=== PATIENT | female | born 1960 | race Caucasian/White ===

== ENCOUNTER 2018-03-01 10:04 | Observation (INO) | payer MEDICARE ==
[~2018-03-01] VITALS: Ht 160 cm; Wt 156.3 kg
[~2018-03-01 10:04] MED LIST: ABILIFY10 MG PO; AMBIEN5 MG PO; CLONAZEPAM0.5 MG PO; LEVOTHYROXINE75 MCG PO; METOPROLOL TART25 MG PO; PLAVIX75 MG PO; PRILOSEC20 MG PO; PRISTIQ ER100 MG PO; PRISTIQ ER50 MG PO
[2018-03-01 12:18] LABS: BASOPHILS % 0.5 % (0.0-1.0); EOSINOPHILS # (AUTO) 0.2 (0.0-0.4); EOSINOPHILS % 2.6 % (0.0-6.0); HEMATOCRIT 24.4 % (34.2-44.1); LYMPHOCYTES # (AUTO) 2.4 (1.0-3.2); LYMPHOCYTES % 30.5 % (18.0-39.1); MEAN CORPUSCULAR HEMOGLOBIN 17.3 pg (28-32); MEAN CORPUSCULAR HGB CONC 26.2 g/dL (31-35); MEAN CORPUSCULAR VOLUME 65.8 fL (81-99); MONOCYTES # (AUTO) 0.5 (0.2-0.8); MONOCYTES % 6.3 % (4.4-11.3); NEUTROPHILS # (AUTO) 4.6 (2.1-6.9); NEUTROPHILS % 59.5 % (38.7-80.0); PLATELET COUNT 527 x10e3/uL (140-360); RED BLOOD COUNT 3.71 x10e6/uL (3.6-5.1); RED CELL DISTRIBUTION WIDTH 19.4 % (11.7-14.4)
[2018-03-01 12:22] LABS: HEMOGLOBIN 6.4 g/dL (12.0-16.0)
[2018-03-01] MEDS ORDERED: SODIUM CHLORIDE 0.9% 250ML 250 ML IV ONE ×2 (12:30→13:15)
[2018-03-01 12:32] LABS: ALANINE AMINOTRANSFERASE 7 IU/L (0-55); ALBUMIN 3.7 g/dL (3.5-5.0); ALBUMIN/GLOBULIN RATIO 0.9 (0.8-2.0); ALKALINE PHOSPHATASE 114 IU/L (40-150); ANION GAP 12.7 mmol/L (8-16); BLOOD UREA NITROGEN 8 mg/dL (7-26); BUN/CREATININE RATIO 10 (6-25); CALCIUM 9.5 mg/dL (8.4-10.2); CARBON DIOXIDE 24 mmol/L (22-29); CHLORIDE 104 mmol/L (98-107); CREATININE, SERUM 0.83 mg/dL (0.57-1.11); EST GLOMERULAR FILTRATION RATE > 60 ML/MIN (60-); GLUCOSE 92 mg/dL (74-118); POTASSIUM 3.7 mmol/L (3.5-5.1); SODIUM 137 mmol/L (136-145)
[2018-03-01 15:43] VITALS: BP 109/71
[2018-03-01 20:00] VITALS: BP 115/74
[2018-03-01] MEDS ORDERED: SODIUM CHLORIDE 0.9% 250ML 250 ML ONE (20:41)
[2018-03-01 22:11] VITALS: BP 115/74
[2018-03-01 22:12] VITALS: BP 115/74
[2018-03-02] VITALS (7 sets, daily range): BP systolic 105–122; BP diastolic 57–78
[2018-03-02 06:36] LABS: BASOPHILS % 0.6 % (0.0-1.0); EOSINOPHILS # (AUTO) 0.2 (0.0-0.4); EOSINOPHILS % 2.4 % (0.0-6.0); HEMATOCRIT 26.6 % (34.2-44.1); HEMOGLOBIN 7.6 g/dL (12.0-16.0); LYMPHOCYTES # (AUTO) 2.1 (1.0-3.2); LYMPHOCYTES % 30.2 % (18.0-39.1); MEAN CORPUSCULAR HGB CONC 28.6 g/dL (31-35); MEAN CORPUSCULAR VOLUME 66.7 fL (81-99); MONOCYTES # (AUTO) 0.5 (0.2-0.8); MONOCYTES % 6.5 % (4.4-11.3); NEUTROPHILS # (AUTO) 4.2 (2.1-6.9); PLATELET COUNT 491 x10e3/uL (140-360); RED BLOOD COUNT 3.99 x10e6/uL (3.6-5.1); RED CELL DISTRIBUTION WIDTH 21.3 % (11.7-14.4)
[2018-03-02 08:00] LABS: ANISOCYTOSIS SLIGHT; RBC MORPHOLOGY COMMENT NORMAL
[2018-03-02 08:01] LABS: HYPOCHROMASIA MODERATE; PLATELET ESTIMATE SLIGHTLY INCREASED; PLATELET MORPHOLOGY COMMENT NORMAL
[2018-03-02] MEDS ORDERED: SODIUM CHLORIDE 0.9% 250ML 250 ML IV ONE (15:00)
[2018-03-02 20:15] LABS: FERRITIN 2.84 ng/mL (4.63-204.00)
[2018-03-02 20:33] LABS: FOLATE 5.8 ng/mL (7.0-15.4)
[2018-03-02] MEDS ORDERED: SODIUM CHLORIDE 0.9% 250ML 250 ML ONE (21:46)
[2018-03-02] MEDS ORDERED: IRON DEXTRAN INJ 500 MG in SODIUM CHLORIDE 0.9% 500ML 500 ML IV ONE (22:30)
[2018-03-02] MEDS ORDERED: IRON DEXTRAN INJ 25 MG in SODIUM CHLORIDE 0.9% 100 ML 100 ML IV ONE (22:30)
[2018-03-02] MEDS ORDERED: ACETAMINOPHEN 325 MG TAB PO ONE (23:15)
[2018-03-02] MEDS ORDERED: DIPHENHYDRAMINE HCL 25 MG CAP PO ONE (23:15)
[2018-03-02] MEDS ORDERED: HYDROCORTISONE SOD SUCCINATE 100 MG VIAL IV ONE (23:15)
[2018-03-03] VITALS: BP 135/88
[2018-03-03 07:56] VITALS: BP 117/69
[2018-03-03 07:57] LABS: HEMATOCRIT 28.6 % (34.2-44.1); HEMOGLOBIN 8.3 g/dL (12.0-16.0)
[2018-03-03] MEDS ORDERED: IRON SUCROSE 100 MG in SODIUM CHLORIDE 0.9% 100 ML 100 ML IV SCH (08:30)
[2018-03-03] MEDS ORDERED: IRON SUCROSE 300 MG in SODIUM CHLORIDE 0.9% 100 ML 100 ML IV SCH (08:30)
[2018-03-03] MEDS ORDERED: FOLIC ACID 1 MG TAB PO SCH (09:00)
[2018-03-03] MEDS ORDERED: CYANOCOBALAMIN 1,000 MCG TAB PO SCH (09:00)
[2018-03-03 10:22] VITALS: BP 117/69
== END 2018-03-03 10:35 | disposition home or self-care (01) ==
LOC: ER 10:04 → ERHOLD 13:11 → IMCU 14:28
PROVIDERS: ADMIT Internal Medicine; ATTEND Internal Medicine
DX: D50.9 Iron deficiency anemia, unspecified (principal); K44.9 Diaphragmatic hernia without obstruction or gangrene; D47.3 Essential (hemorrhagic) thrombocythemia; E53.8 Deficiency of other specified B group vitamins; F32.9 Major depressive disorder, single episode, unspecified; G47.33 Obstructive sleep apnea (adult) (pediatric)
CPT/HCPCS: 36430; P9016; 36415; 80053; 82607; 82728; 82746; 83540; 84466; 84484; 85014; 85018; 85025; 86850; 86870; 86880; 86900; 86905; 86920; 86922; 99001; 99284; G0378; J1750; J1756; J7040; J7050

== ENCOUNTER 2019-09-28 08:50 | Inpatient (IN) | payer MEDICARE ==
[2019-09-26 09:41] LABS: BASOPHILS % 0.5 % (0.0-1.0); EOSINOPHILS # (AUTO) 0.2 (0.0-0.4); EOSINOPHILS % 1.9 % (0.0-6.0); HEMATOCRIT 28.7 % (34.2-44.1); HEMOGLOBIN 8.2 g/dL (12.0-16.0); LYMPHOCYTES # (AUTO) 1.6 (1.0-3.2); MEAN CORPUSCULAR HEMOGLOBIN 20.5 pg (28-32); MEAN CORPUSCULAR HGB CONC 28.6 g/dL (31-35); MEAN CORPUSCULAR VOLUME 71.8 fL (81-99); MONOCYTES # (AUTO) 0.6 (0.2-0.8); MONOCYTES % 6.5 % (4.4-11.3); NEUTROPHILS # (AUTO) 6.1 (2.1-6.9); NEUTROPHILS % 71.7 % (38.7-80.0); PLATELET COUNT 429 x10e3/uL (140-360); RED CELL DISTRIBUTION WIDTH 17.1 % (11.7-14.4)
[2019-09-26 09:58] LABS: ANION GAP 12.6 mmol/L (8-16); BLOOD UREA NITROGEN 10 mg/dL (7-26); BUN/CREATININE RATIO 12 (6-25); CARBON DIOXIDE 25 mmol/L (22-29); CHLORIDE 105 mmol/L (98-107); CREATININE, SERUM 0.83 mg/dL (0.57-1.11); EST GLOMERULAR FILTRATION RATE > 60 ML/MIN (60-); GLUCOSE 90 mg/dL (74-118); POTASSIUM 3.6 mmol/L (3.5-5.1); SODIUM 139 mmol/L (136-145)
[2019-09-28] VITALS (10 sets, daily range): BP systolic 110–150; BP diastolic 74–114
[~2019-09-28] VITALS: Ht 160 cm; Wt 163.9 kg
[~2019-09-28 08:50] MED LIST changes: +ABILIFY5 MG PO; +LEG CRAMPS PO; +PROAIR HFA INH8.5 GM INH; +ROBITUSSIN PO; +SINEMET PO; +TRAZODONE HCL50 MG PO; +TRINTELLIX10 MG PO
[2019-09-28] MEDS ORDERED: CEFAZOLIN SOD 1 GM/NS 50ML 150 ML IV ONE (10:03)
[2019-09-28] MEDS ORDERED: BUPIVACAINE HCL 0.5% INJ 30 ML VIAL INJ ONE (10:08)
[2019-09-28] MEDS ORDERED: LIDOCAINE HCL (LTA) 4 ML SOLN ONE (10:58)
[2019-09-28] MEDS ORDERED: METRONIDAZOLE 500MG/NS 100ML 100 ML IV ONE (12:03)
[2019-09-28] MEDS ORDERED: SUGAMMADEX SODIUM 200 MG/2 ML VIAL IV ONE (12:45)
[2019-09-28] MEDS ORDERED: DIPHENHYDRAMINE HCL INJ 50 MG/ML VIAL IM PRN (12:45)
[2019-09-28] MEDS ORDERED: NALOXONE HCL INJ 0.4 MG/ML AMP IV PRN (12:45)
[2019-09-28] MEDS: SODIUM CHLORIDE 0.9% 250ML IRRIG IR SCH ×4 (12:45→21:38)
[2019-09-28] MEDS ORDERED: ACETAMINOPHEN 1000 MG/100 ML IV PRN (12:45)
[2019-09-28] MEDS ORDERED: KETOROLAC TROMETHAMINE 30 MG/ML VIAL IV PRN (12:45)
[2019-09-28] MEDS ORDERED: ALBUTEROL SULF 0.083% NEB SOLN 3 ML NEB ONE (13:17)
[2019-09-28] MEDS: MORPHINE SULFATE 1 MG/ML 30ML PCA IV PRN ×2 (13:41→23:11)
[2019-09-28] MEDS ORDERED: CEFAZOLIN SOD 1 GM VIAL IV SCH (14:00)
[2019-09-28] MEDS: DEXTROSE 5%/LACTATED RINGERS 1,000 ML IV SCH ×2 (17:45→20:21)
[2019-09-28] MEDS: CEFAZOLIN SOD 2 GM/D5W 50ML 50 ML IV SCH ×2 (17:46→21:34)
[2019-09-28] MEDS ORDERED: DEXAMETHASONE SOD PHOS INJ 4 MG/ML VIAL ONE (17:49)
[2019-09-28] MEDS ORDERED: ACETAMINOPHEN 1000 MG/100 ML IV ONE (17:49)
[2019-09-28] MEDS ORDERED: SEVOFLURANE INHAL SOLN 250 ML PEN BTL ONE (17:49)
[2019-09-28] MEDS ORDERED: ROCURONIUM BROMIDE 10 MG/ML 5ML VIAL ONE (17:49)
[2019-09-28] MEDS ORDERED: LIDOCAINE HCL 2% LOCAL INJ 5 ML SDV VIAL INJ ONE (17:49)
[2019-09-28] MEDS ORDERED: LIDOCAINE HCL 2% JELLY 5 ML TUBE ONE (17:49)
[2019-09-28] MEDS ORDERED: ONDANSETRON HCL INJ 2MG/ML 2ML 2 MG/ML VIAL ONE (17:49)
[2019-09-28] MEDS ORDERED: PROPOFOL IV EMULSION 10 MG/ML 20 ML VIAL ONE (17:49)
[2019-09-28] MEDS ORDERED: MORPHINE SULFATE INJ 10 MG/ML ONE (18:15)
[2019-09-28] MEDS ORDERED: FENTANYL CITRATE/PF 100MCG/2 ML INJ ONE (18:15)
[2019-09-28] MEDS ORDERED: MIDAZOLAM HCL 2 MG/2 ML VIAL ONE (18:15)
--- NOTE | 2019-09-28 19:38 | Operative Report ---
DATE OF PROCEDURE: 09/28/2019 SURGEON: Floyd Francis MD PREOPERATIVE DIAGNOSES: 1. Hiatal hernia. 2. Shortness of breath. POSTOPERATIVE DIAGNOSES: 1. Hiatal hernia. 2. Shortness of breath. PROCEDURES: 1. Diagnostic laparoscopy. 2. Open repair of hiatal hernia with fundoplication. PLANT PROTECTION SUPERVISOR: None. ANESTHESIA: General endotracheal. INDICATIONS AND FINDINGS: The patient is a 59-year-old female with morbid obesity, who has had shortness of breath. Evaluation revealed a large hiatal hernia, which was thought that this was compressing the lung causing her shortness of breath. At surgery, the patient had a moderate-sized hiatal hernia with about one-third of her stomach herniated above the diaphragm with some omentum and fat with no other significant abnormalities, but the patient had adequate pneumoperitoneum and exposure could not be obtained laparoscopically, requiring open surgery. DESCRIPTION OF PROCEDURE: After adequate general endotracheal anesthesia, the patient in supine position, the abdomen was prepped and draped in sterile fashion with ChloraPrep solution. Approximately 5 cm above the umbilicus to the left midline skin and subcutaneous tissue was infiltrated with 0.5% Marcaine. Incision was made, abdominal wall elevated and Veress needle was introduced, pneumoperitoneum was then created. A 10 mm trocar and cannula were then passed through this wound. Laparoscopic camera was introduced. Initial laparoscopy revealed no free fluid. The pneumoperitoneum was limited because of the patient's size. A 10 mm trocar and cannulas were placed in the right of the midline to the falciform ligament. The liver had changes of fatty infiltration. Left lobe of the liver is elevated, however, the size of space to work in was very small. A 5 mm trocar and cannula were placed in subxiphoid to the left of the midline. A 10 mm trocar and cannula were placed in the anterior axillary line below the costal margin. However, adequate exposure could not be obtained despite the additional trocars, therefore space to work in was very small, so the laparoscopic surgery could not be safely done. An upper midline incision was then made and the peritoneal cavity was entered. The patient was found to have hiatal hernia with approximately one-third of the stomach herniated above the diaphragm. The stomach easily reduced in the peritoneal cavity. The left lower liver was mobilized by dividing peritoneal attachments, retracted away from the esophageal hiatus. The lesser omentum was divided with LigaSure device, exposing the esophageal hiatus. Peritoneal attachments to the right side of the esophageal hiatus were divided with LigaSure device and the peritoneal attachments anterior-posterior also divided with LigaSure device. The fundus of the stomach was mobilized by dividing short gastric vessels and peritoneal attachments. Esophagus encircled with a [place] drain. The hiatal hernia was only moderate, this was closed posterior to the esophagus with interrupted sutures of #0 Prolene, open enough so that finger easily passed through the hiatus, but nothing larger. Examination of the fundus and stomach revealed a small perforation in the stomach and this was closed with a TA60 stapler. Because the patient had minimal reflux symptoms, the primary symptoms of shortness of breath thought to be due to compression by the stomach in the chest to do an only a partial fundoplication. The stomach was brought anteriorly and sutures taken from the stomach to the esophagus with interrupted sutures of 2-0 silk to complete approximately 180-degree fundoplication and restore the normal angle of His. Hemostasis was seen to be adequate. The wound was irrigated with saline, inspected for hemostasis, which was seen to be adequate. The midline fascia was then closed and closed with running suture of #1 PDS. Subcutaneous tissue was irrigated with saline. Skin was closed with matt. Sterile dressing was applied. The patient tolerated the procedure well. Estimated blood loss was 100 mL. There were no complications. All counts were correct, and the patient was taken to the recovery room in satisfactory condition MD RANDY LewisG/MODL /[id number] cc: Jaleel Mahmood MD
--- NOTE | 2019-09-28 19:39 | NUR ---
patient admitted to icu from pacu. pt alert and oriented. resting well. calm. has ivf's and pipe turner with effective pain relief. pt educated with pipe turner button. educated for incentive spirometer at bedside. 10 breaths an hour wa. pt verbalized understanding. pt demonstrated correct use of I.S. oriented pt to room and discussed plan of care.
--- NOTE | 2019-09-28 19:41 | NUR ---
nsg report given to night BRI Vital
[2019-09-29] VITALS (20 sets, daily range): BP systolic 101–137; BP diastolic 46–109
[2019-09-29] MEDS: SODIUM CHLORIDE 0.9% 250ML IRRIG IR SCH ×2 (02:59→04:18)
[2019-09-29] MEDS: DEXTROSE 5%/LACTATED RINGERS 1,000 ML IV SCH ×2 (02:59→09:14)
[2019-09-29] MEDS: CEFAZOLIN SOD 2 GM/D5W 50ML 50 ML IV SCH (04:18)
[2019-09-29 05:07] LABS: HEMATOCRIT 28.2 % (34.2-44.1); HEMOGLOBIN 7.8 g/dL (12.0-16.0); RED BLOOD COUNT 3.86 x10e6/uL (3.6-5.1)
[2019-09-29 05:08] LABS: BASOPHILS % 0.1 % (0.0-1.0); LYMPHOCYTES # (AUTO) 1.4 (1.0-3.2); LYMPHOCYTES % 10.3 % (18.0-39.1); MEAN CORPUSCULAR HEMOGLOBIN 20.2 pg (28-32); MEAN CORPUSCULAR HGB CONC 27.7 g/dL (31-35); MEAN CORPUSCULAR VOLUME 73.1 fL (81-99); MONOCYTES # (AUTO) 1.3 (0.2-0.8); MONOCYTES % 9.7 % (4.4-11.3); NEUTROPHILS # (AUTO) 10.4 (2.1-6.9); NEUTROPHILS % 79.3 % (38.7-80.0); PLATELET COUNT 437 x10e3/uL (140-360); RED CELL DISTRIBUTION WIDTH 17.3 % (11.7-14.4)
[2019-09-29 05:33] LABS: ALANINE AMINOTRANSFERASE 43 IU/L (0-55); ALBUMIN 3.2 g/dL (3.5-5.0); ALBUMIN/GLOBULIN RATIO 0.9 (0.8-2.0); ALKALINE PHOSPHATASE 91 IU/L (40-150); ANION GAP 13.4 mmol/L (8-16); BLOOD UREA NITROGEN 9 mg/dL (7-26); BUN/CREATININE RATIO 11 (6-25); CALCIUM 9.1 mg/dL (8.4-10.2); CARBON DIOXIDE 25 mmol/L (22-29); CHLORIDE 104 mmol/L (98-107); CREATININE, SERUM 0.83 mg/dL (0.57-1.11); EST GLOMERULAR FILTRATION RATE > 60 ML/MIN (60-); GLUCOSE 134 mg/dL (74-118); POTASSIUM 4.4 mmol/L (3.5-5.1); SODIUM 138 mmol/L (136-145)
--- NOTE | 2019-09-29 06:45 | Consultation ---
DATE OF CONSULTATION: 09/29/2019 REASON FOR CONSULTATION: Postop medical management. HISTORY OF PRESENT ILLNESS: The patient is a 59-year-old lady, status post hiatal hernia repair, who has actually postoperatively did very well with minimal abdominal pain. She denies any fever, chills, nausea, vomiting, headache, shortness of breath, chest pain on review of systems currently. PAST MEDICAL HISTORY: Significant for chronic anemia, reflux disease, hiatal hernia, morbid obesity. MEDICATIONS: See MAR. ALLERGIES: SEE MAR. SOCIAL HISTORY: Lives at home. Nonsmoker, nondrinker. FAMILY HISTORY: Hypertension, diabetes. PHYSICAL EXAMINATION: VITAL SIGNS: Temperature 98.6, pulse 74, blood pressure 136/74, sats 98%. GENERAL: No apparent distress, lying in bed. NECK: Supple. No lymphadenopathy. CARDIOVASCULAR: Regular rate and rhythm. LUNGS: Clear to auscultation bilaterally. ABDOMEN: Soft. Hypoactive bowel sounds, but no peritoneal signs. EXTREMITIES: No clubbing or cyanosis. NEUROLOGIC: Nonfocal. ASSESSMENT AND PLAN: 1. Reflux disease. Continue with current care. 2. Status post hiatal hernia repair. Continue with postoperative care. 3. Anemia. This is chronic for the patient. She is near her baseline, so we will continue to monitor. 4. Leukocytosis. Continue to monitor. 5. Abdominal pain. Continue with pain control. 6. Morbid obesity. Continue with diet. 7. Hypertension. We will continue to monitor. Please see also chart for full details. MD BENNY Celeste/MICHAEL /[id number]
[2019-09-29 09:09] LABS: EOSINOPHILS % (MANUAL) 1 % (0-7); LYMPHOCYTES % (MANUAL) 16 % (19-48); MONOCYTES % (MANUAL) 7 % (3.4-9.0); NEUTROPHILS % (MANUAL) 76 % (40-74); PLATELET ESTIMATE ADEQUATE; PLATELET MORPHOLOGY COMMENT NORMAL; RBC MORPHOLOGY COMMENT NORMAL
--- NOTE | 2019-09-29 09:27 | NUR ---
Called Dr Guevara's office to notify of new critical care consult.
[2019-09-29] MEDS: DEXTROSE 5%/0.45% SOD CHL 1,000 ML IV SCH ×2 (12:43→22:54)
--- NOTE | 2019-09-29 18:26 | Consultation ---
DATE OF CONSULTATION: 09/29/2019 Critical Care Consultation REASON FOR CONSULTATION: ICU management. CHIEF COMPLAINT: The patient is postoperative, underwent open repair of hiatal hernia and fundoplication by Dr. Francis. HISTORY OF PRESENT ILLNESS: Ms. Blackburn is a 59-year-old female. She told me that she had severe hiatal hernia and she is following up with metropolitan editor, Dr. Rizvi at [facility]. The hiatal hernia was compressing the lung and causing shortness of breath, so she decided to get the surgery done. Postoperatively, the patient is in ICU. She is denying any complaints of chest pain. She is having abdominal discomfort. She is still n.p.o. She uses CPAP at night for obstructive sleep apnea. She denies any history of smoking. She is a lifelong nonsmoker. She is morbidly obese. REVIEW OF SYSTEMS: GENERAL: Denies any fever or chills. HEAD: Denies any head trauma. ENT: Denies any earache. CVS: Denies any chest pain. RESPIRATORY: Denies any shortness of breath. The rest of the review of systems are negative except as in HPI. PAST MEDICAL HISTORY: Hypertension, obesity, obstructive sleep apnea, and gastroesophageal reflux disease. FAMILY AND SOCIAL HISTORY: She does not smoke. Does not drink. PHYSICAL EXAMINATION: VITAL SIGNS: Temperature 97.9, pulse of 83, blood pressure 134/76, respiratory rate of 18, and O2 saturation 97%. HEENT: Head, atraumatic and normocephalic. NECK: Supple. CHEST: Clear to auscultation bilaterally. No wheezing. HEART: S1 and S2 audible. ABDOMEN: Tender. EXTREMITIES: No pedal edema. LABORATORY DATA: Reviewed. Hemoglobin 7.8, white count of 13.12, and platelets 437. Chemistries within normal limits. ASSESSMENT: Elzbieta Blackburn is a 59-year-old female, postoperative after hiatal hernia surgery, fundoplication. She has history of obstructive sleep apnea. PLAN: 1. I will start the patient on CPAP at 10, which is a home setting. 2. Physical Therapy evaluation and treatment. MD MY Rosas/MICHAEL /[id number]
--- NOTE | 2019-09-29 19:25 | NUR ---
reports received, patient in bed, awake alert oriented. no distress noted, stated pain level is 1 at this moment. will continue to monitor.
--- NOTE | 2019-09-29 20:54 | NUR ---
turn patient to the right side, pain level now is 1/10, vitals signs within normal level.
[2019-09-30] VITALS (11 sets, daily range): BP systolic 101–138; BP diastolic 56–100
[2019-09-30] MEDS: MORPHINE SULFATE 1 MG/ML 30ML PCA IV PRN (01:26)
[2019-09-30 05:32] LABS: HEMATOCRIT 25.4 % (34.2-44.1); HEMOGLOBIN 7.1 g/dL (12.0-16.0); MEAN CORPUSCULAR HEMOGLOBIN 20.3 pg (28-32); MEAN CORPUSCULAR VOLUME 72.8 fL (81-99); PLATELET COUNT 372 x10e3/uL (140-360); RED BLOOD COUNT 3.49 x10e6/uL (3.6-5.1); RED CELL DISTRIBUTION WIDTH 17.3 % (11.7-14.4)
--- NOTE | 2019-09-30 05:55 | NUR ---
Dr Timoteo maynard, made him aware patient output is only 400cc in this shift. the MD ordered lasix 20 mg IV time one, also Protonix 40 mg IV twiece a day for heart burn. order carried out.
[2019-09-30 05:58] LABS: ANION GAP 12.5 mmol/L (8-16); BLOOD UREA NITROGEN 6 mg/dL (7-26); BUN/CREATININE RATIO 8 (6-25); CALCIUM 8.6 mg/dL (8.4-10.2); CARBON DIOXIDE 27 mmol/L (22-29); CHLORIDE 100 mmol/L (98-107); CREATININE, SERUM 0.76 mg/dL (0.57-1.11); EST GLOMERULAR FILTRATION RATE > 60 ML/MIN (60-); GLUCOSE 102 mg/dL (74-118); POTASSIUM 3.5 mmol/L (3.5-5.1); SODIUM 136 mmol/L (136-145)
[2019-09-30] MEDS ORDERED: FUROSEMIDE INJ 10 MG/ML 2 ML VIAL IV ONE (06:00)
[2019-09-30 07:13] LABS: HYPOCHROMASIA MODERATE; RBC MORPHOLOGY COMMENT ABNORMAL
[2019-09-30] MEDS: DEXTROSE 5%/0.45% SOD CHL 1,000 ML IV SCH ×2 (08:15→20:22)
[2019-09-30] MEDS: PANTOPRAZOLE 40 MG 10ML VIAL IV SCH ×2 (09:27→17:43)
[2019-09-30] MEDS: ONDANSETRON HCL INJ 2MG/ML 2ML 2 MG/ML VIAL IV PRN (17:49)
[2019-09-30] MEDS: MORPHINE SULFATE INJ 4 MG/ML INJ 1ML IV PRN (17:49)
--- NOTE | 2019-09-30 19:00 | NUR ---
Report given to Naren Guerrero RN.
--- NOTE | 2019-09-30 19:00 | NUR ---
Report received from Karely GREGORY. Care plan reviewed, no family present. Pt reports no pain or discomfort at this time.
[2019-10-01] VITALS (8 sets, daily range): BP systolic 101–133; BP diastolic 56–99
[2019-10-01] MEDS: MORPHINE SULFATE INJ 4 MG/ML INJ 1ML IV PRN ×2 (03:06→21:00)
[2019-10-01 05:21] LABS: BASOPHILS % 0.2 % (0.0-1.0); EOSINOPHILS # (AUTO) 0.2 (0.0-0.4); EOSINOPHILS % 1.7 % (0.0-6.0); LYMPHOCYTES # (AUTO) 1.5 (1.0-3.2); LYMPHOCYTES % 13.6 % (18.0-39.1); MEAN CORPUSCULAR HEMOGLOBIN 20.3 pg (28-32); MEAN CORPUSCULAR HGB CONC 28.3 g/dL (31-35); MEAN CORPUSCULAR VOLUME 71.6 fL (81-99); MONOCYTES # (AUTO) 0.9 (0.2-0.8); MONOCYTES % 8.1 % (4.4-11.3); NEUTROPHILS # (AUTO) 8.5 (2.1-6.9); NEUTROPHILS % 75.4 % (38.7-80.0); PLATELET COUNT 326 x10e3/uL (140-360); RED BLOOD COUNT 3.35 x10e6/uL (3.6-5.1); RED CELL DISTRIBUTION WIDTH 17.1 % (11.7-14.4)
[2019-10-01 05:29] LABS: HEMOGLOBIN 6.8 g/dL (12.0-16.0)
[2019-10-01] MEDS ORDERED: SODIUM CHLORIDE 0.9% 250ML 250 ML IV ONE (05:45)
[2019-10-01 05:46] LABS: ANION GAP 13.9 mmol/L (8-16); BLOOD UREA NITROGEN 9 mg/dL (7-26); BUN/CREATININE RATIO 11 (6-25); CALCIUM 8.6 mg/dL (8.4-10.2); CARBON DIOXIDE 27 mmol/L (22-29); CHLORIDE 97 mmol/L (98-107); CREATININE, SERUM 0.79 mg/dL (0.57-1.11); EST GLOMERULAR FILTRATION RATE > 60 ML/MIN (60-); GLUCOSE 102 mg/dL (74-118); SODIUM 135 mmol/L (136-145)
[2019-10-01 05:53] LABS: POTASSIUM 2.9 mmol/L (3.5-5.1)
--- NOTE | 2019-10-01 06:22 | NUR ---
called and made dr Mahmood aware, patient's Hgb is 6.8 and potassium is 2.9 this morning, orders received to give PRBC 1 unit, and Potassium 40 meq PO time one. Consent for blood transfusion obtained.
[2019-10-01] MEDS ORDERED: POTASSIUM CHLORIDE 20 MEQ TAB CR PO ONE (07:00)
[2019-10-01] MEDS: PANTOPRAZOLE 40 MG 10ML VIAL IV SCH ×2 (08:45→16:30)
[2019-10-01] MEDS ORDERED: SODIUM CHLORIDE 0.9% 250ML 250 ML ONE (08:48)
[2019-10-01] MEDS ORDERED: FUROSEMIDE INJ 10 MG/ML 2 ML VIAL IV NR ×2 (09:00→11:30)
[2019-10-01] MEDS: DEXTROSE 5%/0.45% SOD CHL 1,000 ML IV SCH (11:15)
--- NOTE | 2019-10-01 12:07 | Progress Note ---
DATE: 10/01/2019 SUBJECTIVE: The patient did well overnight. No new complaints. Abdominal pain is doing better. OBJECTIVE: VITAL SIGNS: Temperature 98.0, pulse 78, blood pressure 113/69, sats 99%. GENERAL: No apparent distress, lying in bed. NECK: Supple. CARDIOVASCULAR: Regular rate and rhythm. LUNGS: Decreased breath sounds bilaterally. ABDOMEN: Good bowel sounds, soft, nontender. EXTREMITIES: No clubbing or cyanosis. NEUROLOGIC: Nonfocal. ASSESSMENT AND PLAN: 1. Status post hiatal hernia repair. Continue with postoperative care. 2. Abdominal pain, continues to improve. So, continue with p.r.n. pain medication. 3. Hemoglobin. We will transfuse 1 unit of packed red cells for her. 4. Leukocytosis. Continue to monitor. 5. Hypokalemia. We will replace with some potassium. 6. Reflux disease. Continue with her proton pump inhibitor. Please see hospital chart for full details. MD BENNY Celeste/MICHAEL /[id number]
[2019-10-01 12:33] LABS: BAND NEUTROPHILS % (MANUAL) 3 %; EOSINOPHILS % (MANUAL) 1 % (0-7); LYMPHOCYTES % (MANUAL) 13 % (19-48); NEUTROPHILS % (MANUAL) 76 % (40-74)
[2019-10-01 12:34] LABS: MONOCYTES % (MANUAL) 7 % (3.4-9.0); PLATELET ESTIMATE ADEQUATE; PLATELET MORPHOLOGY COMMENT NORMAL; RBC MORPHOLOGY COMMENT NORMAL
[2019-10-01 14:08] LABS: % IRON SATURATION 4 % (15-50); IRON 14 ug/dL (50-170); TOTAL IRON BINDING CAPACITY 333 ug/dL (261-478); TRANSFERRIN 238 mg/dL (180-382)
[2019-10-01] MEDS: IRON SUCROSE 100 MG in SODIUM CHLORIDE 0.9% 100 ML 100 ML IV SCH (15:54)
--- NOTE | 2019-10-01 16:11 | NUR ---
Phone call received from blood bank. The PRBC is ready for picking crew supervisor and they will cancel what blood bank considers as a duplicate order to transfuse the one unit that is ordered to give today.
--- NOTE | 2019-10-01 18:00 | NUR ---
Pt received from ICU at this time. 0 s/s of acute distress noted. Denies any pain at this time. Pt is on O2 2L/min and denies any SOB. Pt is aox4 and able to vebalize needs.
--- NOTE | 2019-10-01 18:50 | NUR ---
Bedside shift report received from morning nurse. Pt alert to name, lying in bed HOB 45 degrees. Blood running 20g IV right FA, no adverse effects noted. Denies pain at this time. Bed locked. Call light within reach.
[2019-10-01] MEDS: BUDESONIDE/FORMOTEROL FUMARATE 80/4.5MCG 6.9 GM INH AEROSOL IH SCH (19:00)
[2019-10-02] VITALS (8 sets, daily range): BP systolic 101–154; BP diastolic 56–79
[2019-10-02 05:56] LABS: BASOPHILS % 0.3 % (0.0-1.0); EOSINOPHILS # (AUTO) 0.3 (0.0-0.4); EOSINOPHILS % 3.4 % (0.0-6.0); HEMATOCRIT 26.4 % (34.2-44.1); HEMOGLOBIN 7.6 g/dL (12.0-16.0); LYMPHOCYTES # (AUTO) 1.4 (1.0-3.2); LYMPHOCYTES % 16.2 % (18.0-39.1); MEAN CORPUSCULAR HEMOGLOBIN 20.8 pg (28-32); MEAN CORPUSCULAR HGB CONC 28.8 g/dL (31-35); MEAN CORPUSCULAR VOLUME 72.1 fL (81-99); MONOCYTES # (AUTO) 0.8 (0.2-0.8); MONOCYTES % 9.1 % (4.4-11.3); NEUTROPHILS # (AUTO) 6.2 (2.1-6.9); NEUTROPHILS % 69.8 % (38.7-80.0); PLATELET COUNT 357 x10e3/uL (140-360); RED BLOOD COUNT 3.66 x10e6/uL (3.6-5.1); RED CELL DISTRIBUTION WIDTH 17.5 % (11.7-14.4)
[2019-10-02 06:24] LABS: ALANINE AMINOTRANSFERASE 18 IU/L (0-55); ALBUMIN 2.6 g/dL (3.5-5.0); ALBUMIN/GLOBULIN RATIO 0.7 (0.8-2.0); ALKALINE PHOSPHATASE 122 IU/L (40-150); ANION GAP 13.1 mmol/L (8-16); BLOOD UREA NITROGEN 8 mg/dL (7-26); BUN/CREATININE RATIO 11 (6-25); CALCIUM 8.8 mg/dL (8.4-10.2); CARBON DIOXIDE 28 mmol/L (22-29); CHLORIDE 100 mmol/L (98-107); CREATININE, SERUM 0.72 mg/dL (0.57-1.11); EST GLOMERULAR FILTRATION RATE > 60 ML/MIN (60-); GLUCOSE 100 mg/dL (74-118); POTASSIUM 3.1 mmol/L (3.5-5.1); SODIUM 138 mmol/L (136-145)
--- NOTE | 2019-10-02 06:58 | NUR ---
Received bedside shift report from off going nurse. Patient is resting in bed, no s/s of acute distress noted. Call light within reach. Bed in the lowest position.
[2019-10-02] MEDS: BUDESONIDE/FORMOTEROL FUMARATE 80/4.5MCG 6.9 GM INH AEROSOL IH SCH ×3 (07:00→19:00)
[2019-10-02] MEDS: PANTOPRAZOLE 40 MG 10ML VIAL IV SCH ×2 (08:50→16:30)
[2019-10-02] MEDS: DEXTROSE 5%/0.45% SOD CHL 1,000 ML IV SCH (10:20)
--- NOTE | 2019-10-02 10:37 | NUR ---
Ko care completed at this time.
--- NOTE | 2019-10-02 11:30 | NUR ---
Peformed the bedside pulmonary function test ordered by Dr. Guevara. Results are in the doctors bin for dictation.
[2019-10-02] MEDS: IRON SUCROSE 100 MG in SODIUM CHLORIDE 0.9% 100 ML 100 ML IV SCH (14:35)
[2019-10-02] MEDS ORDERED: POTASSIUM CHLORIDE 20 MEQ TAB CR PO STA (15:16)
--- NOTE | 2019-10-02 19:27 | NUR ---
Bedside shift report given to oncoming nurse. Patient is resting in recliner. No acute distress noted. Assisted patient back to bed. Call light within reach. Bed in the lowest position. Bed alarm on.
[2019-10-02] MEDS: ONDANSETRON HCL INJ 2MG/ML 2ML 2 MG/ML VIAL IV PRN (20:13)
[2019-10-02] MEDS: MORPHINE SULFATE INJ 4 MG/ML INJ 1ML IV PRN (20:13)
--- NOTE | 2019-10-02 23:32 | NUR ---
Received bedside report from day nurse. Assisted patient from recliner back into bed. No s/s of distress or c/o pain at this time. Bed locked and in low position, alarm on, call light placed within reach. All safety measures in place. Instructed to call for assistance if needed. Will continue to monitor.
[2019-10-03] VITALS (8 sets, daily range): BP systolic 117–168; BP diastolic 63–79
--- NOTE | 2019-10-03 07:04 | NUR ---
Bedside report given to day nurse. Patient resting in bed, no s/s of distress at this time. All safety measures in place.
[2019-10-03] MEDS: DEXTROSE 5%/0.45% SOD CHL 1,000 ML IV SCH (07:12)
[2019-10-03 07:22] LABS: BASOPHILS % 0.4 % (0.0-1.0); EOSINOPHILS # (AUTO) 0.5 (0.0-0.4); EOSINOPHILS % 5.6 % (0.0-6.0); HEMATOCRIT 26.1 % (34.2-44.1); HEMOGLOBIN 7.5 g/dL (12.0-16.0); LYMPHOCYTES # (AUTO) 1.5 (1.0-3.2); LYMPHOCYTES % 17.9 % (18.0-39.1); MEAN CORPUSCULAR HEMOGLOBIN 20.9 pg (28-32); MEAN CORPUSCULAR HGB CONC 28.7 g/dL (31-35); MEAN CORPUSCULAR VOLUME 72.9 fL (81-99); MONOCYTES # (AUTO) 0.7 (0.2-0.8); MONOCYTES % 8.4 % (4.4-11.3); NEUTROPHILS # (AUTO) 5.5 (2.1-6.9); NEUTROPHILS % 64.7 % (38.7-80.0); PLATELET COUNT 371 x10e3/uL (140-360); RED BLOOD COUNT 3.58 x10e6/uL (3.6-5.1); RED CELL DISTRIBUTION WIDTH 18.3 % (11.7-14.4)
[2019-10-03] MEDS: BUDESONIDE/FORMOTEROL FUMARATE 80/4.5MCG 6.9 GM INH AEROSOL IH SCH ×2 (07:45→21:00)
--- NOTE | 2019-10-03 07:50 | NUR ---
Pt received in bed this morning with eyes open. AOx4 and able to verbalize needs. Denies any pain at this time. Breaths are even and unlabored on 2L/NC.
[2019-10-03 08:18] LABS: ALANINE AMINOTRANSFERASE 17 IU/L (0-55); ALBUMIN 2.6 g/dL (3.5-5.0); ALBUMIN/GLOBULIN RATIO 0.7 (0.8-2.0); ALKALINE PHOSPHATASE 125 IU/L (40-150); ANION GAP 12.3 mmol/L (8-16); BLOOD UREA NITROGEN 5 mg/dL (7-26); BUN/CREATININE RATIO 7 (6-25); CALCIUM 8.9 mg/dL (8.4-10.2); CARBON DIOXIDE 28 mmol/L (22-29); CHLORIDE 101 mmol/L (98-107); CREATININE, SERUM 0.68 mg/dL (0.57-1.11); EST GLOMERULAR FILTRATION RATE > 60 ML/MIN (60-); GLUCOSE 94 mg/dL (74-118); POTASSIUM 3.3 mmol/L (3.5-5.1); SODIUM 138 mmol/L (136-145)
[2019-10-03] MEDS: PANTOPRAZOLE 40 MG 10ML VIAL IV SCH ×2 (08:53→16:50)
[2019-10-03] MEDS ORDERED: POTASSIUM CHLORIDE 20 MEQ TAB CR PO ONE (11:10)
[2019-10-03 11:15] LABS: HYPOCHROMASIA MODERATE; POIKILOCYTOSIS SLIGHT
[2019-10-03 11:16] LABS: PLATELET ESTIMATE ADEQUATE
[2019-10-03 11:18] LABS: ANISOCYTOSIS SLIGHT; MICROCYTOSIS SLIGHT; PLATELET MORPHOLOGY COMMENT NORMAL
--- NOTE | 2019-10-03 11:47 | NUR ---
Ko catheter was removed at this time per physician.
[2019-10-03] MEDS: HYDROCODONE/APAP 5MG-325MG TAB PO PRN ×2 (13:38→19:55)
[2019-10-03] MEDS: IRON SUCROSE 100 MG in SODIUM CHLORIDE 0.9% 100 ML 100 ML IV SCH (15:12)
--- NOTE | 2019-10-03 16:53 | NUR ---
Pt was able to ambulate to bathroom and urinate and have a bowel movement.
--- NOTE | 2019-10-03 19:16 | NUR ---
Received bedside report from day nurse. Patient sitting in chair, no s/s of distress at this time. All safety measures in place. Will continue to monitor.
--- NOTE | 2019-10-03 19:49 | NUR ---
Removed IV to left forearm per patient request. Patient still has IV access to right forearm.
[2019-10-04 00:57] VITALS: BP 116/84
[2019-10-04] MEDS: HYDROCODONE/APAP 5MG-325MG TAB PO PRN ×2 (01:29→11:04)
--- NOTE | 2019-10-04 02:31 | Pulmonary Function Test ---
DATE OF STUDY: 10/02/2019 REFERRING PHYSICIAN: NAME OF STUDY: Spirometry report. Patient of Dr. Francis. FINDINGS: Restrictive spirometry. Forced vital capacity 1.41 L, 44% of predicted. FEV1 1.16 L, 46%. FEV1/FVC ratio 82%. FEF 25-75 of 52%. Floyd Guevara MD DS/MODL /[id number]
[2019-10-04] MEDS ORDERED: ALPRAZOLAM 0.25 MG TAB PO PRN (05:15)
[2019-10-04 05:25] VITALS: BP 103/54
--- NOTE | 2019-10-04 07:05 | NUR ---
Bedside report given to day nurse. Patient resting in bed, no s/s of distress or c/o pain at this time. All safety measures in place.
[2019-10-04 07:36] VITALS: BP 114/64
[2019-10-04 08:17] VITALS: BP 114/64
[2019-10-04] MEDS: BUDESONIDE/FORMOTEROL FUMARATE 80/4.5MCG 6.9 GM INH AEROSOL IH SCH (08:20)
[2019-10-04] MEDS: PANTOPRAZOLE 40 MG 10ML VIAL IV SCH (09:00)
[2019-10-04 11:14] VITALS: BP 121/67
--- NOTE | 2019-10-04 13:17 | NUR ---
Nutrition Screen Note RD Recommendation for Physician: - Continue Regular diet as tolerated Plan of Care: RD following, monitoring for tolerance and adequacy Nutrition reason for involvement: LOS Primary Diagnose(s): GERD, hiatal hernia PMH: anemia, reflux disease, hiatal hernia, obesity Ht: 63 in Wt: 361.44 lb BMI: 64 kg/m2 IBW: [address] Assessment: (10/04) 59 YOF admitted for GERD and hiatal hernia requiring surgical repair on 09/28. Pt seen today for LOS. Pt reports tolerating regular diet, denies any difficulties swallowing and no abdominal pain or N/V/D. Pt reports UBW 350#, no wt loss noted. Pt discussed during am rounds, possible discharge today. Chart reviewed. Labs and meds reviewed. Will monitor and continue to follow. Current Diet: Regular Malnutrition Evaluation (10/04/19) The patient does not meet criteria for a specified degree of malnutrition at this time. Will re-evaluate at follow-up as appropriate. Diet Education Needs Assessment: Diet education not indicated. Diet tolerance: tolerating po Nutrition Care Level: Low Signed: Genet Blair RD, LD, [facility]
--- NOTE | 2019-10-04 15:02 | NUR ---
IMM LETTER EXPLAINED TO PT. PT VERBALIZED UNDERSTANDING. IMM LETTER SIGNED. COPY TO PT AND COPY TO CHART.
[2019-10-04 15:31] VITALS: BP 122/69
--- NOTE | 2019-10-04 16:28 | NUR ---
Discontinuing skilled PT services since patient is Mod I in functional mobility. Thank you. Addendum: 10/04/19 at 1629 by Gordo borrero PT Amended: Links added.
--- NOTE | 2019-10-04 16:31 | NUR ---
Pt discharged at this time. Pt verbalized understanding of all discharge follow up appts and discharge instructions. Midline abdominal incision is intact with matt.
--- NOTE | 2019-10-05 06:23 | Discharge Summary ---
ADMISSION DIAGNOSES: Shortness of breath, gastroesophageal reflux disease, morbid obesity, hiatal hernia. DISCHARGE DIAGNOSES: Shortness of breath, gastroesophageal reflux disease, morbid obesity, hiatal hernia. PRINCIPAL PROCEDURE: Diagnostic laparoscopy, open repair of hiatal hernia with fundoplication. HISTORY OF PRESENT ILLNESS: The patient is a 59-year-old female with history of morbid obesity, who presents with complaints of shortness of breath. Evaluation revealed hiatal hernia. Opinion of pulmonary physicians that the patient's shortness of breath is related to herniation of the stomach into the chest, causing compression of the lung. 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 HOSPITAL COURSE: The patient was admitted to the hospital, underwent surgery on the same day on admission. She had diagnostic laparoscopy, open repair of hiatal hernia with fundoplication. Postop, the patient was initially monitored in the intensive care unit. She was seen in consultation by Dr. Jaleel Mahmood, Dr. Rena Alfredo. She remained stable. She was transferred to the regular floor. She was started on liquid diet. She tolerated without problem and gradually advanced to solid food. She continued to have some shortness of breath, however, which was managed by Pulmonary and gradually improved. She was out of bed ambulating with a walker. She was tolerating diet. She was discharged home on the 6th postop day. At the time of discharge, she was afebrile, wounds were clean, and tolerating diet. DISCHARGE MEDICATIONS: Are listed in the chart. FOLLOWUP: She will follow up with Dr. Francis in approximately 5 to 6 days after discharge to home in satisfactory condition on a regular diet. MD LEIDY Lewis/MICHAEL /[id number]
== END 2019-10-04 16:34 | disposition home or self-care (01) | DRG 326 ==
LOC: OR 08:50 → PACU V 13:24 → ICU 15:00 → MED/SURG3 10-01 18:15
PROVIDERS: ADMIT Surgery; ATTEND Surgery
PROC: 0DV40ZZ Restriction of Esophagogastric Junction, Open Approach (ICD-10-PCS; 2019-09-28)
PROC: 0BJT4ZZ Inspection of Diaphragm, Percutaneous Endoscopic Approach (ICD-10-PCS; 2019-09-28)
PROC: 0BQT0ZZ Repair Diaphragm, Open Approach (ICD-10-PCS; principal; 2019-09-28 11:00)
PROC: 30233N1 Transfusion of Nonautologous Red Blood Cells into Peripheral Vein, Percutaneous Approach (ICD-10-PCS; 2019-10-01)
DX: K44.9 Diaphragmatic hernia without obstruction or gangrene (principal); J96.00 Acute respiratory failure, unspecified whether with hypoxia or hypercapnia; Z68.44 Body mass index [BMI] 60.0-69.9, adult; Q25.45 Double aortic arch; E66.01 Morbid (severe) obesity due to excess calories; Z53.31 Laparoscopic surgical procedure converted to open procedure; K21.9 Gastro-esophageal reflux disease without esophagitis; D64.9 Anemia, unspecified; D72.829 Elevated white blood cell count, unspecified; I10 Essential (primary) hypertension; G47.33 Obstructive sleep apnea (adult) (pediatric); E87.6 Hypokalemia
CPT/HCPCS: 36415; 80048; 80053; 83540; 83735; 84466; 85007; 85025; 85027; 86850; 86900; 86920; 86922; 93005; 94060; 94660; 94664; 96360; 96361; 97139; J0690; J1100; J1756; J1885; J1940; J2001; J2250; J2270; J2405; J3010; J7050; P9016

== ENCOUNTER 2019-11-29 12:55 | Inpatient (IN) | payer MEDICARE ==
[~2019-11-29] VITALS: Ht 160 cm; Wt 154.8 kg
[2019-11-29] MEDS ORDERED: SODIUM CHLORIDE 0.9% 1000ML 1,000 ML IV STA (12:58)
[2019-11-29] MEDS ORDERED: SODIUM CHLORIDE 0.9% 1000ML 1,000 ML IV SCH (13:04)
[2019-11-29] MEDS ORDERED: MORPHINE SULFATE 2 MG/ML SYR 1ML IV PRN (13:15)
--- NOTE | 2019-11-29 13:36 | NUR ---
Noted eschar to L lateral side of Right foot. 3 sutures noted to ankle region, Large round fluid filled blister noted to R medial lopez. Scattered abrasions and bruising noted to R foot with serosanginous and purulent drainage.
[2019-11-29] MEDS ORDERED: VANCOMYCIN 1GM/NS 250 ML 250 ML IV ONE (13:45)
--- NOTE | 2019-11-29 14:02 | Diagnostic Imaging Report ---
EXAMINATION: CHEST SINGLE (PORTABLE) INDICATION: Shortness of breath COMPARISON: None FINDINGS: LINES/TUBES:None LUNGS:The lungs are well-inflated. No focal consolidation or pulmonary edema. PLEURA:No pleural effusion or pneumothorax. MEDIASTINUM:The cardiomediastinal silhouette appears normal in size and shape. BONES/SOFT TISSUES:No acute osseous injury. ABDOMEN:No free air under the diaphragm. IMPRESSION: No focal pneumonia or pulmonary edema. Signed by: Vazquez Edgar MD on 11/29/2019 1:59 PM
--- NOTE | 2019-11-29 14:04 | Diagnostic Imaging Report ---
EXAMINATION: FOOT RIGHT COMPLETE INDICATION: Foot infection COMPARISON: None FINDINGS: No acute fracture or dislocation. Alignment appears anatomic. Mild diffuse soft tissue swelling at the midfoot and forefoot. Mild scattered degenerative changes. Prominent plantar calcaneal spur. IMPRESSION: Diffuse forefoot and midfoot soft tissue swelling. No acute osseous injury. Signed by: Vazquez Edgar MD on 11/29/2019 2:00 PM
[2019-11-29 14:19] LABS: BASOPHILS % 0.3 % (0.0-1.0); EOSINOPHILS # (AUTO) 0.1 (0.0-0.4); EOSINOPHILS % 1.3 % (0.0-6.0); HEMATOCRIT 28.3 % (34.2-44.1); HEMOGLOBIN 8.5 g/dL (12.0-16.0); LYMPHOCYTES # (AUTO) 1.4 (1.0-3.2); LYMPHOCYTES % 14.8 % (18.0-39.1); MEAN CORPUSCULAR HEMOGLOBIN 23.3 pg (28-32); MEAN CORPUSCULAR VOLUME 77.5 fL (81-99); MONOCYTES # (AUTO) 0.6 (0.2-0.8); MONOCYTES % 6.7 % (4.4-11.3); NEUTROPHILS # (AUTO) 7.2 (2.1-6.9); NEUTROPHILS % 75.6 % (38.7-80.0); PLATELET COUNT 530 x10e3/uL (140-360); RED BLOOD COUNT 3.65 x10e6/uL (3.6-5.1); RED CELL DISTRIBUTION WIDTH 20.5 % (11.7-14.4)
[2019-11-29 14:29] LABS: INR 1.05; PROTHROMBIN TIME 14.3 seconds (11.9-14.5)
[2019-11-29 14:30] LABS: PARTIAL THROMBOPLASTIN TIME 37.9 seconds (23.8-35.5)
[2019-11-29] MEDS: PIPER-TAZ 3.375 GM 50 ML IV SCH ×3 (14:36→23:48)
[2019-11-29 14:42] LABS: ALANINE AMINOTRANSFERASE 8 IU/L (0-55); ALBUMIN 3.1 g/dL (3.5-5.0); ALBUMIN/GLOBULIN RATIO 0.6 (0.8-2.0); ALKALINE PHOSPHATASE 166 IU/L (40-150); ANION GAP 11.3 mmol/L (8-16); BLOOD UREA NITROGEN 8 mg/dL (7-26); BUN/CREATININE RATIO 12 (6-25); CALCIUM 9.4 mg/dL (8.4-10.2); CARBON DIOXIDE 28 mmol/L (22-29); CHLORIDE 104 mmol/L (98-107); CREATINE KINASE 30 IU/L (29-168); CREATININE, SERUM 0.67 mg/dL (0.57-1.11); EST GLOMERULAR FILTRATION RATE > 60 ML/MIN (60-); GLUCOSE 99 mg/dL (74-118); MAGNESIUM 1.9 MG/DL (1.3-2.1); POTASSIUM 3.3 mmol/L (3.5-5.1); SODIUM 140 mmol/L (136-145)
[2019-11-29] MEDS: ONDANSETRON HCL INJ 2MG/ML 2ML 2 MG/ML VIAL IV PRN ×2 (15:20→21:45)
[2019-11-29] MEDS: MORPHINE SULFATE INJ 4 MG/ML INJ 1ML IV PRN ×2 (15:51→21:45)
--- NOTE | 2019-11-29 16:05 | NUR ---
Received patient at this time, a/ox3, chief complaint right foot pain and cellulitis, PMH significant for HTN, Vanco given x1 in ER, wound to right foot noted with Eschar, wound care consult in place, call light within reach, will monitor.
[2019-11-29 16:35] VITALS: BP 132/77
[2019-11-29 16:42] VITALS: BP 132/77
--- NOTE | 2019-11-29 17:36 | NUR ---
Patient stable, tolerating abx well, IV fluids running, pains well managed, tolerated dinner, no distress,
--- NOTE | 2019-11-29 18:51 | NUR ---
Call to Dr. Scales for consult by community organization director
--- NOTE | 2019-11-29 19:00 | NUR ---
RECEIVED PATIENT IN BEDSIDE REPORT. PATIENT SITTING ON SIDE OF BED. A&OX4. PAIN 2/10. ESCHAR NOTED TO LATERAL SIDE OF R FOOT, FLUID FILLED BLISTER NOTED TO MEDIAL SIDE OF R MONTOYA. SWELLING AND REDNESS NOTED. NO DRAINAGE. L AC 20G ASYMPTOMATIC, INTACT, AND PATENT. NO S&S OF DISTRESS NOTED. BED LOCKED IN LOWEST POSITION, SIDE RIALS UPX2, CALL LIGHT IN REACH.
[2019-11-29 20:00] VITALS: BP 133/76
--- NOTE | 2019-11-29 20:30 | NUR ---
SPOKE TO MD MARTÍNEZ CONCERNING CONSULT, STATED HE WOULD SEE PATIENT TOMORROW.
[2019-11-29 20:58] VITALS: BP 133/76
[2019-11-30] VITALS (8 sets, daily range): BP systolic 125–142; BP diastolic 60–75
[2019-11-30 02:31] LABS: CREATINE KINASE MB 0.3 ng/mL (0-5.0)
[2019-11-30] MEDS: MORPHINE SULFATE INJ 4 MG/ML INJ 1ML IV PRN ×3 (03:43→20:55)
[2019-11-30] MEDS: ONDANSETRON HCL INJ 2MG/ML 2ML 2 MG/ML VIAL IV PRN (03:43)
[2019-11-30] MEDS ORDERED: ZOLPIDEM TARTRATE 5 MG TAB PO PRN (04:30)
[2019-11-30 05:27] LABS: BASOPHILS % 0.4 % (0.0-1.0); EOSINOPHILS # (AUTO) 0.2 (0.0-0.4); EOSINOPHILS % 2.7 % (0.0-6.0); HEMATOCRIT 26.2 % (34.2-44.1); HEMOGLOBIN 7.7 g/dL (12.0-16.0); LYMPHOCYTES # (AUTO) 1.4 (1.0-3.2); LYMPHOCYTES % 17.3 % (18.0-39.1); MEAN CORPUSCULAR HEMOGLOBIN 22.9 pg (28-32); MEAN CORPUSCULAR HGB CONC 29.4 g/dL (31-35); MONOCYTES # (AUTO) 0.8 (0.2-0.8); MONOCYTES % 9.2 % (4.4-11.3); NEUTROPHILS # (AUTO) 5.7 (2.1-6.9); NEUTROPHILS % 69.5 % (38.7-80.0); PLATELET COUNT 506 x10e3/uL (140-360); RED BLOOD COUNT 3.36 x10e6/uL (3.6-5.1); RED CELL DISTRIBUTION WIDTH 20.3 % (11.7-14.4)
[2019-11-30] MEDS ORDERED: ALPRAZOLAM 0.5 MG TAB PO PRN (05:30)
[2019-11-30] MEDS ORDERED: ARIPIPRAZOLE 5 MG TABLET PO ONE (05:30)
[2019-11-30 05:44] LABS: CHLORIDE 105 mmol/L (98-107); POTASSIUM 3.2 mmol/L (3.5-5.1); SODIUM 138 mmol/L (136-145)
[2019-11-30] MEDS: PIPER-TAZ 3.375 GM 50 ML IV SCH ×4 (05:52→23:34)
[2019-11-30 06:03] LABS: ALBUMIN 2.7 g/dL (3.5-5.0); ALBUMIN/GLOBULIN RATIO 0.6 (0.8-2.0); ALKALINE PHOSPHATASE 257 IU/L (40-150); ANION GAP 13.2 mmol/L (8-16); BLOOD UREA NITROGEN 8 mg/dL (7-26); BUN/CREATININE RATIO 11 (6-25); CALCIUM 8.9 mg/dL (8.4-10.2); CARBON DIOXIDE 24 mmol/L (22-29); CREATININE, SERUM 0.71 mg/dL (0.57-1.11); EST GLOMERULAR FILTRATION RATE > 60 ML/MIN (60-); GLUCOSE 104 mg/dL (74-118)
[2019-11-30] MEDS: VANCOMYCIN 1GM/NS 250 ML 250 ML IV SCH ×2 (06:32→18:00)
[2019-11-30] MEDS: LEVOTHYROXINE SODIUM 75 MCG TAB PO SCH (06:32)
[2019-11-30 06:34] LABS: ALANINE AMINOTRANSFERASE 10 IU/L (0-55)
[2019-11-30] MEDS: METOPROLOL TARTRATE 25 MG TAB PO SCH ×2 (09:00→17:05)
[2019-11-30] MEDS: OMEPRAZOLE 20 MG CAP PO SCH (09:00)
[2019-11-30 10:02] LABS: CREATINE KINASE MB 0.2 ng/mL (0-5.0)
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
--- NOTE | 2019-11-30 12:59 | Diagnostic Imaging Report ---
TECHNIQUE: Magnetic resonance imaging of the RIGHT foot was performed WITHOUT injected contrast. HISTORY: Right foot pain COMPARISON: None available. DISCUSSION: Bone marrow signal is normal. No fracture or osteomyelitis. Diffuse subcutaneous swelling involving the dorsal and lateral aspect of the forefoot. A 1.5 cm lateral forefoot fluid collection. Best seen on long axis image 17. Muscle bulk is preserved. IMPRESSION: No fracture or osteomyelitis. Diffuse subcutaneous swelling/cellulitis of the dorsal and lateral forefoot. A 1.5 cm lateral forefoot fluid collection may reflect hematoma versus abscess. Signed by: Dr. Brennan Thornton M.D. on 11/30/2019 12:55 PM
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
--- NOTE | 2019-11-30 19:00 | NUR ---
RECEIVED PATIENT IN BEDSIDE SHIFT REPORT. PATIENT RESTING IN BED AT THIS TIME, A&OX3. PAIN 10/23. NO S&S OF DISTRESS NOTED. NS RUNNING AT 100ML/HR TO R FA 22G ASYMPTOMATIC, INTACT, AND PATENT. DRESSING TO R FOOT IS C/D/I. SMALL AREA OF DRAINAGE NOTED TO UPPER LATERAL ASPECT OF FOOT. OFFLOADED R HEEL WITH PILLOW SUSPENSION. BED LOCKED IN LOWEST POSITION, SIDE RAILS UPX2, CALL LIGHT IN REACH.
--- NOTE | 2019-11-30 20:50 | NUR ---
CONSENT FOR I&D COMPLETED AT THIS TIME, IN CHART.
[2019-11-30] MEDS ORDERED: SINEMET PO SCH (21:00)
[2019-11-30] MEDS: CARBIDOPA/LEVODOPA 25/250 TAB PO SCH (21:44)
[2019-11-30] MEDS: TRAZODONE HCL 50 MG TAB PO SCH (21:44)
[2019-12-01] VITALS (10 sets, daily range): BP systolic 114–138; BP diastolic 61–80
[2019-12-01] MEDS: MORPHINE SULFATE INJ 4 MG/ML INJ 1ML IV PRN ×5 (03:55→21:19)
[2019-12-01 05:33] LABS: BASOPHILS # (AUTO) 0.1 (0.0-0.1); BASOPHILS % 0.6 % (0.0-1.0); EOSINOPHILS # (AUTO) 0.3 (0.0-0.4); EOSINOPHILS % 3.6 % (0.0-6.0); HEMATOCRIT 25.2 % (34.2-44.1); HEMOGLOBIN 7.4 g/dL (12.0-16.0); LYMPHOCYTES # (AUTO) 2.1 (1.0-3.2); LYMPHOCYTES % 23.4 % (18.0-39.1); MEAN CORPUSCULAR HEMOGLOBIN 23.1 pg (28-32); MEAN CORPUSCULAR HGB CONC 29.4 g/dL (31-35); MEAN CORPUSCULAR VOLUME 78.5 fL (81-99); MONOCYTES # (AUTO) 0.7 (0.2-0.8); MONOCYTES % 7.7 % (4.4-11.3); NEUTROPHILS # (AUTO) 5.6 (2.1-6.9); NEUTROPHILS % 63.3 % (38.7-80.0); PLATELET COUNT 486 x10e3/uL (140-360); RED BLOOD COUNT 3.21 x10e6/uL (3.6-5.1); RED CELL DISTRIBUTION WIDTH 20.1 % (11.7-14.4)
[2019-12-01] MEDS: PIPER-TAZ 3.375 GM 50 ML IV SCH ×4 (05:39→23:49)
[2019-12-01 05:54] LABS: ALBUMIN 2.6 g/dL (3.5-5.0); ALBUMIN/GLOBULIN RATIO 0.6 (0.8-2.0); ALKALINE PHOSPHATASE 234 IU/L (40-150); ANION GAP 12.1 mmol/L (8-16); BLOOD UREA NITROGEN 6 mg/dL (7-26); BUN/CREATININE RATIO 9 (6-25); CALCIUM 8.8 mg/dL (8.4-10.2); CARBON DIOXIDE 25 mmol/L (22-29); CHLORIDE 105 mmol/L (98-107); CREATININE, SERUM 0.66 mg/dL (0.57-1.11); EST GLOMERULAR FILTRATION RATE > 60 ML/MIN (60-); GLUCOSE 98 mg/dL (74-118); POTASSIUM 3.1 mmol/L (3.5-5.1); SODIUM 139 mmol/L (136-145)
[2019-12-01 06:06] LABS: ALANINE AMINOTRANSFERASE < 6 IU/L (0-55)
[2019-12-01] MEDS: VANCOMYCIN 1GM/NS 250 ML 250 ML IV SCH ×2 (06:15→18:41)
[2019-12-01] MEDS: LEVOTHYROXINE SODIUM 75 MCG TAB PO SCH (07:52)
[2019-12-01] MEDS: CARBIDOPA/LEVODOPA 25/250 TAB PO SCH ×3 (07:52→21:19)
[2019-12-01] MEDS ORDERED: POTASSIUM CHLORIDE 20 MEQ TAB CR PO ONE (08:10)
[2019-12-01] MEDS: METOPROLOL TARTRATE 25 MG TAB PO SCH ×2 (08:46→16:40)
[2019-12-01] MEDS ORDERED: BACITRACIN 50,000 UNIT VIAL ONE (09:36)
[2019-12-01] MEDS ORDERED: BUPIVACAINE HCL 0.5% INJ 30 ML VIAL INJ ONE (09:36)
[2019-12-01] MEDS ORDERED: PROPOFOL IV EMULSION 10 MG/ML 20 ML VIAL ONE (11:13)
[2019-12-01] MEDS ORDERED: DEXAMETHASONE SOD PHOS INJ 4 MG/ML VIAL ONE (11:13)
[2019-12-01] MEDS ORDERED: LIDOCAINE HCL 2% LOCAL INJ 5 ML SDV VIAL INJ ONE (11:13)
[2019-12-01] MEDS ORDERED: DESFLURANE 240 ML BTL INH ONE (11:13)
[2019-12-01] MEDS ORDERED: ROCURONIUM BROMIDE 10 MG/ML 5ML VIAL ONE (11:13)
[2019-12-01] MEDS ORDERED: ONDANSETRON HCL INJ 2MG/ML 2ML 2 MG/ML VIAL ONE ×2 (11:13→11:38)
[2019-12-01] MEDS ORDERED: KETOROLAC TROMETHAMINE 30 MG/ML VIAL ONE (11:13)
[2019-12-01] MEDS ORDERED: SUCCINYLCHOLINE CHLORIDE 20 MG/ML 10ML VIAL ONE (11:13)
[2019-12-01] MEDS ORDERED: HYDROMORPHONE 1MG/1ML INJ ONE (11:17)
[2019-12-01] MEDS ORDERED: METOCLOPRAMIDE HCL 10 MG/2ML VIAL ONE (11:24)
--- NOTE | 2019-12-01 11:35 | NUR ---
Received report on patient at 1129 from Tabitha. Patient came back to room 207 at 1145. Patient is AOx3, when being wheeled down the hallway she was vomiting yellow liquid. At the time she had been given a dose of Reglan and Ondansetron in the post-op area. Once she was settled and cleaned up in her room she said she "felt better" and "didn't feel nauseous anymore". Dr. Mahmood was contacted for a one time dose of Phenergan if needed. Patient's was at the bedside. Patient denies pain at this time, as she received Diluadid 0.5mg in the post-op. Right foot is wrapped with BOB bandage. Will continue to monitor and follow post-op orders.
[2019-12-01] MEDS ORDERED: FENTANYL CITRATE/PF 100MCG/2 ML INJ ONE (11:46)
[2019-12-01] MEDS ORDERED: MIDAZOLAM HCL 2 MG/2 ML VIAL ONE (11:46)
[2019-12-01] MEDS: OMEPRAZOLE 20 MG CAP PO SCH (12:28)
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
[2019-12-01] MEDS: ONDANSETRON HCL INJ 2MG/ML 2ML 2 MG/ML VIAL IV PRN ×2 (18:00→21:19)
--- NOTE | 2019-12-01 19:00 | NUR ---
RECEIVED PATIENT IN BEDSIDE SHIFT REPORT. PATIENT A&OX3. RESTING IN BED. PAIN MANAGEABLE AT THIS TIME, 10/23. NO NAUSEA AT THIS TIME. BOB WRAP TO R FOOT AND ANKLE, C/D/I. NO DRAINAGE NOTED. L FA 22G ASYMPTOMATIC, INTACT, AND PATENT. NO S&S OF DISTRESS NOTED. BED LOCKED IN LOWEST POSITION, SIDE RAILS UPX2, CALL LIGHT IN REACH.
[2019-12-01] MEDS: TRAZODONE HCL 50 MG TAB PO SCH (21:19)
[2019-12-01] MEDS ORDERED: SODIUM CHLORIDE 0.9% 250ML 250 ML ONE (23:50)
[2019-12-02] VITALS (7 sets, daily range): BP systolic 120–141; BP diastolic 62–71
[2019-12-02] MEDS: ONDANSETRON HCL INJ 2MG/ML 2ML 2 MG/ML VIAL IV PRN ×3 (01:31→12:00)
[2019-12-02] MEDS: MORPHINE SULFATE INJ 4 MG/ML INJ 1ML IV PRN ×3 (01:31→12:00)
[2019-12-02] MEDS: PIPER-TAZ 3.375 GM 50 ML IV SCH ×3 (05:31→18:05)
[2019-12-02] MEDS: VANCOMYCIN 1GM/NS 250 ML 250 ML IV SCH ×2 (06:10→18:04)
[2019-12-02] MEDS: LEVOTHYROXINE SODIUM 75 MCG TAB PO SCH (06:21)
--- NOTE | 2019-12-02 07:00 | NUR ---
BEDSIDE SHIFT REPORT RECEIVED FROM DOMINATRIX NURSE. PT DENIES NEEDS AT THIS TIME.
[2019-12-02] MEDS: OMEPRAZOLE 20 MG CAP PO SCH (08:41)
[2019-12-02] MEDS: CARBIDOPA/LEVODOPA 25/250 TAB PO SCH ×3 (08:41→20:52)
[2019-12-02] MEDS: METOPROLOL TARTRATE 25 MG TAB PO SCH ×2 (08:41→18:04)
[2019-12-02] MEDS ORDERED: SODIUM CHLORIDE 0.9% 250ML 0 ML ONE (10:21)
[2019-12-02 10:28] LABS: BASOPHILS % 0.3 % (0.0-1.0); EOSINOPHILS % 0.1 % (0.0-6.0); HEMATOCRIT 25.2 % (34.2-44.1); HEMOGLOBIN 7.2 g/dL (12.0-16.0); LYMPHOCYTES # (AUTO) 1.4 (1.0-3.2); LYMPHOCYTES % 15.9 % (18.0-39.1); MEAN CORPUSCULAR HEMOGLOBIN 22.7 pg (28-32); MEAN CORPUSCULAR HGB CONC 28.6 g/dL (31-35); MEAN CORPUSCULAR VOLUME 79.5 fL (81-99); MONOCYTES # (AUTO) 0.6 (0.2-0.8); MONOCYTES % 6.8 % (4.4-11.3); NEUTROPHILS # (AUTO) 6.5 (2.1-6.9); NEUTROPHILS % 75.6 % (38.7-80.0); PLATELET COUNT 496 x10e3/uL (140-360); RED BLOOD COUNT 3.17 x10e6/uL (3.6-5.1); RED CELL DISTRIBUTION WIDTH 20.2 % (11.7-14.4)
[2019-12-02 10:44] LABS: ALANINE AMINOTRANSFERASE < 6 IU/L (0-55); ALBUMIN 2.6 g/dL (3.5-5.0); ALBUMIN/GLOBULIN RATIO 0.6 (0.8-2.0); ALKALINE PHOSPHATASE 211 IU/L (40-150); ANION GAP 9.7 mmol/L (8-16); BLOOD UREA NITROGEN 8 mg/dL (7-26); BUN/CREATININE RATIO 11 (6-25); CALCIUM 8.9 mg/dL (8.4-10.2); CARBON DIOXIDE 26 mmol/L (22-29); CHLORIDE 107 mmol/L (98-107); CREATININE, SERUM 0.73 mg/dL (0.57-1.11); EST GLOMERULAR FILTRATION RATE > 60 ML/MIN (60-); GLUCOSE 146 mg/dL (74-118); POTASSIUM 3.7 mmol/L (3.5-5.1); SODIUM 139 mmol/L (136-145)
--- NOTE | 2019-12-02 18:45 | NUR ---
REPORT RECEIVED FROM DAY RN. PT IS ALERT AND ORIENTED X3. RESPIRATIONS EVEN AND UNLABORED. LBM REPORTED TO BE WED BY PT. LT PIV 22G - LT FOREARM. SITE HEALTHY.RT FOOT ELEVATED ON PILLOW. BOB WRAP TO RT FOOT- DRESSING IS DRY AND INTACT.PT DENIES PAIN. CALL LIGHT WITHIN REACH. BED LOCKED AND BED IN LOW POSITION.
[2019-12-02] MEDS: TRAZODONE HCL 50 MG TAB PO SCH (20:51)
[2019-12-03] VITALS (8 sets, daily range): BP systolic 120–153; BP diastolic 63–74
[2019-12-03] MEDS: MORPHINE SULFATE INJ 4 MG/ML INJ 1ML IV PRN (00:08)
[2019-12-03] MEDS: PIPER-TAZ 3.375 GM 50 ML IV SCH ×4 (00:32→17:46)
[2019-12-03] MEDS: VANCOMYCIN 1GM/NS 250 ML 250 ML IV SCH ×2 (06:23→16:30)
[2019-12-03 06:29] LABS: BASOPHILS % 0.3 % (0.0-1.0); EOSINOPHILS # (AUTO) 0.2 (0.0-0.4); EOSINOPHILS % 2.5 % (0.0-6.0); LYMPHOCYTES # (AUTO) 1.9 (1.0-3.2); LYMPHOCYTES % 23.6 % (18.0-39.1); MEAN CORPUSCULAR HGB CONC 29.2 g/dL (31-35); MEAN CORPUSCULAR VOLUME 78.9 fL (81-99); MONOCYTES # (AUTO) 0.5 (0.2-0.8); MONOCYTES % 6.5 % (4.4-11.3); NEUTROPHILS # (AUTO) 5.3 (2.1-6.9); NEUTROPHILS % 66.5 % (38.7-80.0); PLATELET COUNT 505 x10e3/uL (140-360); RED BLOOD COUNT 3.04 x10e6/uL (3.6-5.1); RED CELL DISTRIBUTION WIDTH 20.7 % (11.7-14.4)
[2019-12-03 06:50] LABS: ALBUMIN 2.5 g/dL (3.5-5.0); ALBUMIN/GLOBULIN RATIO 0.6 (0.8-2.0); ALKALINE PHOSPHATASE 170 IU/L (40-150); ANION GAP 11.5 mmol/L (8-16); BLOOD UREA NITROGEN 7 mg/dL (7-26); BUN/CREATININE RATIO 10 (6-25); CARBON DIOXIDE 26 mmol/L (22-29); CHLORIDE 108 mmol/L (98-107); CREATININE, SERUM 0.71 mg/dL (0.57-1.11); EST GLOMERULAR FILTRATION RATE > 60 ML/MIN (60-); GLUCOSE 81 mg/dL (74-118); POTASSIUM 3.5 mmol/L (3.5-5.1); SODIUM 142 mmol/L (136-145)
[2019-12-03 06:51] LABS: ALANINE AMINOTRANSFERASE < 6 IU/L (0-55)
[2019-12-03] MEDS ORDERED: SODIUM CHLORIDE 0.9% 250ML 250 ML ONE (06:53)
[2019-12-03] MEDS ORDERED: ZOLPIDEM TARTRATE 5 MG TAB PO PRN (07:00)
--- NOTE | 2019-12-03 07:00 | NUR ---
BEDSIDE SHIFT REPORT RECEIVED FROM SEWAGE DISPOSAL WORKER NURSE. PT DENIES NEEDS AT THIS TIME.
[2019-12-03] MEDS: OMEPRAZOLE 20 MG CAP PO SCH (07:55)
[2019-12-03] MEDS: LEVOTHYROXINE SODIUM 75 MCG TAB PO SCH (07:55)
[2019-12-03] MEDS: METOPROLOL TARTRATE 25 MG TAB PO SCH ×2 (07:56→16:30)
[2019-12-03] MEDS: CARBIDOPA/LEVODOPA 25/250 TAB PO SCH ×3 (07:56→22:13)
[2019-12-03] MEDS: NYSTATIN/TRIAMCINOLONE 15 GM CR TOP SCH (09:39)
[2019-12-03] MEDS: HYDROCODONE/APAP 10MG-325MG TAB PO PRN ×2 (09:54→16:02)
--- NOTE | 2019-12-03 19:00 | NUR ---
BEDSIDE SHIFT REPORT RECEIVED FROM DAY RN. PT IS ALERT AND ORIENTED X3. RESPIRATION ARE EVEN AND UNLABORED. PT SITTING ON SIDE OF BED. BOB WRAP ON RT LOWER LEG. DRESSING IS DRY AND INTACT. 22G IN LEFT HAND - NS AT KVO RATE. PT AMBULATE TO BATHROOM WITH ONE ASSIST. PT UP WITH BOOT ON RT FOOT. CALL LIGHT WITHIN REACH. BED LOCKED IN LOW POSITION. PT DENIES PAIN. RT FOOT ELEVATED ON PILLOW.
[2019-12-03] MEDS: TRAZODONE HCL 50 MG TAB PO SCH (22:13)
[2019-12-04] VITALS (8 sets, daily range): BP systolic 125–157; BP diastolic 64–94
[2019-12-04] MEDS: PIPER-TAZ 3.375 GM 50 ML IV SCH ×5 (00:14→23:20)
[2019-12-04] MEDS: HYDROCODONE/APAP 10MG-325MG TAB PO PRN ×2 (00:44→14:07)
[2019-12-04] MEDS ORDERED: SODIUM CHLORIDE 0.9% 250ML 250 ML ONE (04:43)
[2019-12-04 05:31] LABS: BASOPHILS % 0.3 % (0.0-1.0); EOSINOPHILS # (AUTO) 0.3 (0.0-0.4); EOSINOPHILS % 4.5 % (0.0-6.0); HEMATOCRIT 24.8 % (34.2-44.1); HEMOGLOBIN 7.1 g/dL (12.0-16.0); LYMPHOCYTES # (AUTO) 1.7 (1.0-3.2); LYMPHOCYTES % 22.8 % (18.0-39.1); MEAN CORPUSCULAR HEMOGLOBIN 22.5 pg (28-32); MEAN CORPUSCULAR HGB CONC 28.6 g/dL (31-35); MEAN CORPUSCULAR VOLUME 78.7 fL (81-99); MONOCYTES # (AUTO) 0.6 (0.2-0.8); MONOCYTES % 7.6 % (4.4-11.3); NEUTROPHILS # (AUTO) 4.8 (2.1-6.9); NEUTROPHILS % 64.3 % (38.7-80.0); PLATELET COUNT 521 x10e3/uL (140-360); RED BLOOD COUNT 3.15 x10e6/uL (3.6-5.1); RED CELL DISTRIBUTION WIDTH 20.5 % (11.7-14.4)
[2019-12-04] MEDS: VANCOMYCIN 1GM/NS 250 ML 250 ML IV SCH ×2 (06:46→16:07)
[2019-12-04] MEDS: LEVOTHYROXINE SODIUM 75 MCG TAB PO SCH (07:34)
[2019-12-04] MEDS: OMEPRAZOLE 20 MG CAP PO SCH (07:34)
--- NOTE | 2019-12-04 08:01 | NUR ---
BEDSIDE SHIFT REPORT RECEIVED FROM SEWER PIPE PRESS OPERATOR RN; PT IN STABLE CONDITION.
[2019-12-04] MEDS: CARBIDOPA/LEVODOPA 25/250 TAB PO SCH ×3 (08:58→21:06)
[2019-12-04] MEDS: METOPROLOL TARTRATE 25 MG TAB PO SCH ×2 (08:59→16:07)
[2019-12-04 09:39] LABS: HYPOCHROMASIA MODERATE
[2019-12-04] MEDS ORDERED: ONDANSETRON HCL 4 MG ORAL DISINTEGRATING TAB PO PRN (13:15)
--- NOTE | 2019-12-04 14:02 | NUR ---
Dr. Scales came to pt's bedside, performed wound dressing change. states he willl order wound consult for wound vac.
[2019-12-04] MEDS: NYSTATIN/TRIAMCINOLONE 15 GM CR TOP SCH (15:28)
--- NOTE | 2019-12-04 15:44 | NUR ---
Nutrition Screen Note RD Recommendation for Physician: -Continue current diet as ordered Plan of Care: RD following, monitoring for tolerance and adequacy Nutrition reason for involvement: Length of stay Primary Diagnose(s): cellulitis of right lower limb PMH: HTN, obesity, anxiety, anemia Ht: 63 in Wt:341 lb BMI: 60.5 kg/m2 IBW:[address] Assessment: (12/04/19) Chart reviewed. Labs and meds reviewed. Pt is a 59 year old female admitted with cellulitis of right lower limb. Pt reports eating >50% of meals. No weight loss reported and pt is unsure of her usual weight. No N/V/D/C or chewing/swallowing issues at this time. Will continue to monitor. Current Diet: regular Malnutrition Evaluation (12/04/2019) The patient does not meet criteria for a specified degree of malnutrition at this time. Will re-evaluate at follow-up as appropriate. Diet Education Needs Assessment: Pt was interested in nutrition information. Provided pt with written materials regarding following a general, healthy diet. Pt was not interested in verbal education and stated she will read provided materials at a later time. Encouraged pt to contact RD if she had questions. Nutrition Care Level: low Signed: Araseli Donnelly, RD, LD
--- NOTE | 2019-12-04 16:35 | Progress Note ---
DATE: 12/04/2019 The patient is seen today, status post deep wound debridement, and incision and drainage on the dorsal lateral aspect of the right foot. She is doing well today. She states that her foot has felt better almost immediately after surgery and there is noted to be a fair amount of serosanguineous drainage of the dorsal aspect of the right foot. Very minimal bleeding is noted. The underlying tissue with amnio fill is granular without obvious abscessing or additional infection noted. There is still significant cellulitis to the right leg at the ankle area as well as the wound on the dorsal medial aspect of the foot. Both of these areas as well as the dorsal lateral de-gloved foot are re-dressed today. I have recommended and ordered a wound VAC to be applied to the most significant wounds and continued IV antibiotics as she does still have a very serious and limb-threatening condition. We are waiting further cultures from the time of surgery and we will follow accordingly. ORQUIDEA Rich/MICHAEL /[id number]
--- NOTE | 2019-12-04 19:15 | NUR ---
RECEIVED PATIENT. PATIENT IS AAOX3. RESP EVEN AND UNLABORED. NO ACUTE DISTRESS AT THIS TIME. PATIENT DENIES OF ANY PAIN OR DISCOMFORT AT THIS TIME. RIGHT FOOT DRESSING NOTED, DRY AND INTACT. CALL LIGHT WITHIN REACH. INSTRUCT PATIENT TO CALL FOR ASSISTANCE. BED LOW/LOCKED. CONTINUE TO MONITOR CLOSELY
[2019-12-04] MEDS: TRAZODONE HCL 50 MG TAB PO SCH (21:06)
[2019-12-05] VITALS (8 sets, daily range): BP systolic 121–141; BP diastolic 57–78
[2019-12-05] MEDS: HYDROCODONE/APAP 10MG-325MG TAB PO PRN ×3 (01:00→22:32)
[2019-12-05] MEDS: PIPER-TAZ 3.375 GM 50 ML IV SCH ×3 (05:21→21:41)
[2019-12-05] MEDS: VANCOMYCIN 1GM/NS 250 ML 250 ML IV SCH ×2 (05:53→17:11)
--- NOTE | 2019-12-05 06:46 | NUR ---
CALLED AND LEFT MESSAGE TO DR BORDEN OFFICE.
--- NOTE | 2019-12-05 07:06 | NUR ---
CHANGE OF SHIFT REPORT RECEIVED FROM PM NURSE; PT IN STABLE CONDITION.
[2019-12-05] MEDS: OMEPRAZOLE 20 MG CAP PO SCH (08:02)
[2019-12-05] MEDS: LEVOTHYROXINE SODIUM 75 MCG TAB PO SCH (08:03)
[2019-12-05] MEDS: METOPROLOL TARTRATE 25 MG TAB PO SCH ×2 (08:04→17:10)
[2019-12-05] MEDS: CARBIDOPA/LEVODOPA 25/250 TAB PO SCH ×3 (08:04→21:41)
[2019-12-05] MEDS: NYSTATIN/TRIAMCINOLONE 15 GM CR TOP SCH (09:30)
--- NOTE | 2019-12-05 12:29 | NUR ---
NEGATIVE PRESSURE DRESSING APPLIED TO POST SURGICAL DEBRIDED AREA TO RT LOWER LEG MEASURES UPPER RT LOWER LEG 2CM X2CM X.2CM LOWER RT LEG MEASURES 5.5CM X 11CM X1CM BLACK FOAM APPLIED TO WOUNDBASE @ 120 MMHG CONTINUOUS SETTING CHANGE ON WEDNESDAY ,WEDNESDAYS AND FRIDAYS Addendum: 12/05/19 at 1232 by Lucas Varghese RN Amended: Links added.
[2019-12-05] MEDS: TRAZODONE HCL 50 MG TAB PO SCH (21:41)
[2019-12-06] VITALS (9 sets, daily range): BP systolic 112–155; BP diastolic 58–84
[2019-12-06] MEDS: PIPER-TAZ 3.375 GM 50 ML IV SCH ×5 (04:30→21:33)
[2019-12-06] MEDS ORDERED: SODIUM CHLORIDE 0.9% 250ML 250 ML ONE (04:43)
[2019-12-06] MEDS ORDERED: METHOCARBAMOL 750 MG TAB PO PRN (05:45)
[2019-12-06] MEDS: VANCOMYCIN 1GM/NS 250 ML 250 ML IV SCH (06:30)
[2019-12-06 06:36] LABS: BASOPHILS % 0.3 % (0.0-1.0); EOSINOPHILS # (AUTO) 0.4 (0.0-0.4); EOSINOPHILS % 4.7 % (0.0-6.0); HEMATOCRIT 25.9 % (34.2-44.1); HEMOGLOBIN 7.5 g/dL (12.0-16.0); LYMPHOCYTES # (AUTO) 1.9 (1.0-3.2); LYMPHOCYTES % 21.6 % (18.0-39.1); MEAN CORPUSCULAR HEMOGLOBIN 22.9 pg (28-32); MONOCYTES # (AUTO) 0.7 (0.2-0.8); MONOCYTES % 7.7 % (4.4-11.3); NEUTROPHILS # (AUTO) 5.6 (2.1-6.9); PLATELET COUNT 589 x10e3/uL (140-360); RED BLOOD COUNT 3.28 x10e6/uL (3.6-5.1); RED CELL DISTRIBUTION WIDTH 20.1 % (11.7-14.4)
[2019-12-06 06:49] LABS: ALBUMIN 2.7 g/dL (3.5-5.0); ALBUMIN/GLOBULIN RATIO 0.7 (0.8-2.0); ALKALINE PHOSPHATASE 146 IU/L (40-150); BLOOD UREA NITROGEN < 5 mg/dL (7-26); CALCIUM 8.6 mg/dL (8.4-10.2); CARBON DIOXIDE 26 mmol/L (22-29); CHLORIDE 107 mmol/L (98-107); CREATININE, SERUM 0.66 mg/dL (0.57-1.11); EST GLOMERULAR FILTRATION RATE > 60 ML/MIN (60-); GLUCOSE 80 mg/dL (74-118); MAGNESIUM 1.8 MG/DL (1.3-2.1); SODIUM 140 mmol/L (136-145)
[2019-12-06 06:50] LABS: ALANINE AMINOTRANSFERASE < 6 IU/L (0-55); BUN/CREATININE RATIO 8 (6-25)
--- NOTE | 2019-12-06 07:00 | NUR ---
RCD PT AT BED PT IS ALERT AND ORIENTED RESTING ON BED IV PATENT BY SALINE FLUSH BED LOW AND LOCKED CALL LIGHT IN REACH
[2019-12-06] MEDS: LEVOTHYROXINE SODIUM 75 MCG TAB PO SCH (07:30)
[2019-12-06] MEDS: OMEPRAZOLE 20 MG CAP PO SCH (07:30)
--- NOTE | 2019-12-06 07:30 | NUR ---
Bedside report and rounds completed with oncoming nurse. Patient in bed with call light in reach. No issues or concerns expressed or noted.
[2019-12-06] MEDS: NYSTATIN/TRIAMCINOLONE 15 GM CR TOP SCH (09:00)
[2019-12-06] MEDS: CARBIDOPA/LEVODOPA 25/250 TAB PO SCH ×3 (09:00→21:33)
[2019-12-06] MEDS: METOPROLOL TARTRATE 25 MG TAB PO SCH ×2 (09:00→16:59)
--- NOTE | 2019-12-06 09:01 | NUR ---
PAGED DR DEAL AND NOTIFIED POTASSIUM CHANTELL AND COMFORT GOT NEW ORDERS
[2019-12-06] MEDS ORDERED: POTASSIUM CHLORIDE 20 MEQ TAB CR PO ONE (09:45)
[2019-12-06 11:01] LABS: HYPOCHROMASIA SLIGHT
--- NOTE | 2019-12-06 11:52 | Diagnostic Imaging Report ---
Chest, 1 view, 12/06/2019. History: PICC placement. Comparison: 11/29/2019. Findings: The cardiomediastinal silhouette and pulmonary vasculature are mildly prominent. There is no focal consolidation or pleural effusion. Right upper extremity PICC terminates near the cavoatrial junction. There are no acute osseous or soft tissue abnormalities. Impression: Mild cardiomegaly and vascular congestion. PICC in adequate position. Signed by: Thierry Siddiqui on 12/06/2019 11:48 AM
--- NOTE | 2019-12-06 14:29 | NUR ---
Spoke to Dr. Gandhi, who gave order for inpatient rehab eval. Spoke to pt at bedside. Pt is agreeable for inpatient rehab, states she wants to go to [place] ([facility]). Choice letter signed and placed in chart. Copy to pt. Referral faxed to [facility] at [phone]. Nena Yeager, rep with [facility] notified.
--- NOTE | 2019-12-06 14:51 | Progress Note ---
DATE: 12/06/2019 The patient is seen today, status post full thickness I and D and debridement on the dorsal aspect of the right foot. Wound VAC is in place. The patient states she is feeling great. Foot continues to improve. Does appear that the cellulitis is improved. Wound VAC is in place. The patient has been utilizing the walker for bathroom privileges and to move from chair to bed. I would like for Physical Therapy to evaluate her and increase activity level as tolerated. The wound VAC can be disconnected for a short walk down the [place] as the patient tolerates to improve strength and increase activity level in preparation for admission to an inpatient rehab program. Wound VAC will need to be continued for the foreseeable future as this wound continues to heal and improve and infection clears. ORQUIDEA Rich/MICHAEL /[id number]
--- NOTE | 2019-12-06 15:29 | NUR ---
AC TO LORE RADIOLOGY OK TO USE PICC LINE
[2019-12-06] MEDS: VANCOMYCIN 750MG/NS 150ML IVPB 150 ML IV SCH (16:59)
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
--- NOTE | 2019-12-06 18:48 | NUR ---
PT RESTING ON BED BED SIDE REPORT GIVEN TO ONCOMING NURSE
[2019-12-06] MEDS: TRAZODONE HCL 50 MG TAB PO SCH (21:33)
[2019-12-06] MEDS: HYDROCODONE/APAP 10MG-325MG TAB PO PRN (22:25)
[2019-12-07] VITALS (7 sets, daily range): BP systolic 126–158; BP diastolic 64–73
[2019-12-07] MEDS: PIPER-TAZ 3.375 GM 50 ML IV SCH ×4 (04:15→22:00)
[2019-12-07] MEDS: VANCOMYCIN 750MG/NS 150ML IVPB 150 ML IV SCH ×2 (05:00→17:30)
--- NOTE | 2019-12-07 07:10 | NUR ---
RCD PT AT BED PT IS ALERT AND ORIENTED RESTING ON BED IV PATENT BY SALINE FLUSH BED LOW AND LOCKED CALL LIGHT IN REACH
[2019-12-07] MEDS: LEVOTHYROXINE SODIUM 75 MCG TAB PO SCH (07:30)
[2019-12-07] MEDS: OMEPRAZOLE 20 MG CAP PO SCH (07:30)
[2019-12-07] MEDS: METOPROLOL TARTRATE 25 MG TAB PO SCH ×2 (08:49→17:00)
[2019-12-07] MEDS: NYSTATIN/TRIAMCINOLONE 15 GM CR TOP SCH (08:49)
[2019-12-07] MEDS: CARBIDOPA/LEVODOPA 25/250 TAB PO SCH ×3 (08:49→21:05)
--- NOTE | 2019-12-07 11:40 | NUR ---
PT notes faxed to [facility] at [phone].
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
--- NOTE | 2019-12-07 12:43 | NUR ---
Per Nena Yeager with [facility], insurance is requesting P2P be completed. Dr. Gandhi agreed to do P2P.
--- NOTE | 2019-12-07 18:52 | NUR ---
PT RESTING ON BED BED SIDE REPORT GIVEN TO ONCOMING NURSE
[2019-12-07] MEDS: HYDROCODONE/APAP 10MG-325MG TAB PO PRN (21:05)
[2019-12-07] MEDS: TRAZODONE HCL 50 MG TAB PO SCH (21:05)
[2019-12-08] VITALS (7 sets, daily range): BP systolic 117–151; BP diastolic 62–81
[2019-12-08] MEDS: PIPER-TAZ 3.375 GM 50 ML IV SCH ×4 (04:15→20:53)
[2019-12-08] MEDS: VANCOMYCIN 750MG/NS 150ML IVPB 150 ML IV SCH ×2 (05:26→17:25)
[2019-12-08 06:00] LABS: BASOPHILS % 0.3 % (0.0-1.0); EOSINOPHILS # (AUTO) 0.4 (0.0-0.4); EOSINOPHILS % 4.5 % (0.0-6.0); HEMATOCRIT 25.6 % (34.2-44.1); HEMOGLOBIN 7.5 g/dL (12.0-16.0); LYMPHOCYTES # (AUTO) 1.6 (1.0-3.2); LYMPHOCYTES % 20.8 % (18.0-39.1); MEAN CORPUSCULAR HEMOGLOBIN 22.9 pg (28-32); MEAN CORPUSCULAR HGB CONC 29.3 g/dL (31-35); MONOCYTES # (AUTO) 0.8 (0.2-0.8); MONOCYTES % 9.9 % (4.4-11.3); NEUTROPHILS % 63.9 % (38.7-80.0); PLATELET COUNT 565 x10e3/uL (140-360); RED BLOOD COUNT 3.28 x10e6/uL (3.6-5.1); RED CELL DISTRIBUTION WIDTH 19.9 % (11.7-14.4)
[2019-12-08 06:17] LABS: ALBUMIN 2.6 g/dL (3.5-5.0); ALBUMIN/GLOBULIN RATIO 0.7 (0.8-2.0); ALKALINE PHOSPHATASE 140 IU/L (40-150); BLOOD UREA NITROGEN 5 mg/dL (7-26); BUN/CREATININE RATIO 7 (6-25); CALCIUM 8.3 mg/dL (8.4-10.2); CARBON DIOXIDE 26 mmol/L (22-29); CHLORIDE 107 mmol/L (98-107); CREATININE, SERUM 0.67 mg/dL (0.57-1.11); EST GLOMERULAR FILTRATION RATE > 60 ML/MIN (60-); GLUCOSE 82 mg/dL (74-118); MAGNESIUM 1.8 MG/DL (1.3-2.1); SODIUM 141 mmol/L (136-145)
[2019-12-08 06:18] LABS: ALANINE AMINOTRANSFERASE < 6 IU/L (0-55)
[2019-12-08 07:22] LABS: FERRITIN 30.82 ng/mL (4.63-204.00)
[2019-12-08] MEDS ORDERED: POTASSIUM CHLORIDE 20 MEQ TAB CR PO ONE (07:30)
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
[2019-12-08] MEDS: NYSTATIN/TRIAMCINOLONE 15 GM CR TOP SCH (09:00)
[2019-12-08] MEDS: OMEPRAZOLE 20 MG CAP PO SCH (09:01)
[2019-12-08] MEDS: LEVOTHYROXINE SODIUM 75 MCG TAB PO SCH (09:01)
[2019-12-08] MEDS: METOPROLOL TARTRATE 25 MG TAB PO SCH ×2 (09:02→16:02)
[2019-12-08] MEDS: CARBIDOPA/LEVODOPA 25/250 TAB PO SCH ×3 (09:02→20:53)
[2019-12-08] MEDS: HYDROCODONE/APAP 10MG-325MG TAB PO PRN ×2 (10:30→22:41)
--- NOTE | 2019-12-08 14:24 | NUR ---
WOUND CARE CONSULT FOR NEGATIVE PRESSURE DRESSING APPLICATION TO RIGHT LATERAL FOOT WOUND, MEASURING 5.5 CMX 11 CM X 0.9 CM; AND RIGHT LATERAL LEG WOUND MEASURING 2CM X 2 CM X 0.1 CM. BLACK FOAM APPLIED TO WOUND BASE @ 120 MMGH CONTINUOUS SETTING; CHANGE WEDNESDAY, WEDNESDAY AND WEDNESDAY. PT INSTRUCTED TO NOTIFY NURSE IF MACHINES ALARMS A LEAK; PT VERBALIZES UNDERSTANDING. RECOMMENDATIONS NURSING TO MONITOR WOUND VAC AND TO MAINTAIN SEAL. NURSING TO NOTIFY WOUND CARE IF UNABLE TO MAINTAIN SEAL AND TO NOTIFY MD. NURSING INSTRUCTED TO DO NOT DISCONNECT WOUND VAC FOR MORE THAN 2 HOURS. NURSING TO CONSULT WOUND CARE NEEDED. Addendum: 12/08/19 at 1435 by Margaret Kurtz RN Amended: Links added.
--- NOTE | 2019-12-08 16:23 | NUR ---
Per Nena Yeager with [facility], pt has been approved. She will call MOT to house painter helper or nurses station. CM provided Nena with both phone numbers. Pt will be going to: [facility] [address] [place] [address] MOT initiated and placed with pt's packet at nurses station. Adrianna GREGORY was informed. CM also updated pt at bedside.
--- NOTE | 2019-12-08 20:40 | NUR ---
RECEIVED DISCHARGE ORDER FROM DR DEAL
[2019-12-08] MEDS: TRAZODONE HCL 50 MG TAB PO SCH (20:53)
[2019-12-08] MEDS ORDERED: ARIPIPRAZOLE 5 MG TABLET PO SCH (21:00)
--- NOTE | 2019-12-08 21:35 | NUR ---
DRESSING WET TO DRY DONE TO RIGHT FOOT. RETURN WOUND VAC MACHINE TO PSYCHOLOGIST RESEARCH ASSISTANT OFFICE.
--- NOTE | 2019-12-08 21:45 | NUR ---
ATTEMPTED TO CALL REPORT X3 TO [facility], NURSE WAS BUSY AND DIDN'T TAKE REPORT. NOTIFIED FOREIGN STUDENT ADVISER
--- NOTE | 2019-12-08 21:51 | NUR ---
Called [facility] for transport to [facility]
--- NOTE | 2019-12-08 22:10 | NUR ---
CALLED REPORT TO NURSE HAYS AT [facility]. NOTIFIED SPECIAL EDUCATION PROFESSIONAL TO CALL EMS
--- NOTE | 2019-12-08 23:26 | NUR ---
EMS IS HERE TO BOOT TURNER PATIENT. VITAL SIGN STABLE AT THIS TIME.
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
== END 2019-12-09 00:02 | DRG 603 ==
LOC: ER 12:55 → ERHOLD 13:04 → MED/SURG2 16:06
PROVIDERS: ADMIT Internal Medicine; ATTEND Internal Medicine
PROC: 02HV33Z Insertion of Infusion Device into Superior Vena Cava, Percutaneous Approach (ICD-10-PCS; principal; 2019-12-06)
DX: L03.115 Cellulitis of right lower limb (principal); I10 Essential (primary) hypertension; D50.9 Iron deficiency anemia, unspecified; E03.9 Hypothyroidism, unspecified; R25.1 Tremor, unspecified; S97.81XA Crushing injury of right foot, initial encounter; V48.4XXA Person boarding or alighting a car injured in noncollision transport accident, initial encounter
CPT/HCPCS: 36415; 36569; 71045; 80053; 80202; 82550; 82553; 82728; 83540; 83735; 83880; 84466; 84484; 85025; 85610; 85730; 87040; 87071; 87075; 87186; 87205; 88304; 93971; 96361; 97139; 97606; 99251; 99284; J0330; J1100; J1170; J1885; J2001; J2250; J2270; J2405; J2543; J2765; J3010; J3370; J7030; J7050; Q4100

== ENCOUNTER 2021-04-23 06:26 | Emergency (ER) | payer MEDICARE ==
[~2021-04-23] VITALS: Ht 160 cm; Wt 154.7 kg
[~2021-04-23 06:26] MED LIST changes: +XANAX0.5 MG PO
[2021-04-23] MEDS ORDERED: CASIRIVIMAB/IMDEVIMAB 10 ML in SODIUM CHLORIDE 0.9% 100 ML IV ONE (06:45)
== END 2021-04-23 08:01 | disposition home or self-care (01) ==
LOC: ER 07:24
DX: U07.1 COVID-19 (principal); I10 Essential (primary) hypertension; J45.909 Unspecified asthma, uncomplicated; E78.5 Hyperlipidemia, unspecified
CPT/HCPCS: 99283; J7050

== ENCOUNTER 2022-03-15 18:50 | Emergency (ER) | payer MEDICARE ==
[~2022-03-15] VITALS: Ht 160 cm; Wt 154.7 kg
[2022-03-15] MEDS ORDERED: CEPHALEXIN500 MG PO (21:44)
== END 2022-03-15 21:50 | disposition home or self-care (01) ==
LOC: ER 19:01
DX: S81.011A Laceration without foreign body, right knee, initial encounter (principal); W10.9XXA Fall (on) (from) unspecified stairs and steps, initial encounter; E66.01 Morbid (severe) obesity due to excess calories; Z68.44 Body mass index [BMI] 60.0-69.9, adult
CPT/HCPCS: 99283

== ENCOUNTER → 2022-04-30 | Day surgery (SDC) | payer MEDICARE ==
[2022-04-28 13:10] LABS: BASOPHILS # (AUTO) 0.1 (0.0-0.1); BASOPHILS % 0.7 % (0.0-1.0); EOSINOPHILS # (AUTO) 0.2 (0.0-0.4); EOSINOPHILS % 2.9 % (0.0-6.0); HEMATOCRIT 44.3 % (34.2-44.1); HEMOGLOBIN 14.3 g/dL (12.0-16.0); LYMPHOCYTES # (AUTO) 1.8 (1.0-3.2); LYMPHOCYTES % 23.5 % (18.0-39.1); MEAN CORPUSCULAR HEMOGLOBIN 28.5 pg (28-32); MEAN CORPUSCULAR HGB CONC 32.3 g/dL (31-35); MEAN CORPUSCULAR VOLUME 88.2 fL (81-99); MONOCYTES # (AUTO) 0.5 (0.2-0.8); MONOCYTES % 6.9 % (4.4-11.3); NEUTROPHILS # (AUTO) 4.9 (2.1-6.9); NEUTROPHILS % 65.3 % (38.7-80.0); PLATELET COUNT 299 x10e3/uL (140-360); RED BLOOD COUNT 5.02 x10e6/uL (3.6-5.1); RED CELL DISTRIBUTION WIDTH 14.9 % (11.7-14.4)
[~2022-04-30] MED LIST changes: +CEPHALEXIN500 MG PO; +FENTANYL CITRATE/PF 100MCG/2 ML INJ ONE; +LIDOCAINE HCL 2% LOCAL INJ 5 ML SDV VIAL INJ ONE; +MIDAZOLAM HCL 2 MG/2 ML VIAL ONE; +PAMELOR25 MG PO; +PROPOFOL IV EMULSION 10 MG/ML 20 ML VIAL ONE; +RYTARY ER 36.21 EACH PO
[2022-04-30 11:10] VITALS: BP 108/71
== END | disposition home or self-care (01) ==
LOC: OR 08:35
PROVIDERS: ATTEND Internal Medicine Gastroenterology
DX: K29.70 Gastritis, unspecified, without bleeding (principal); K31.7 Polyp of stomach and duodenum; K20.90 Esophagitis, unspecified without bleeding; K44.9 Diaphragmatic hernia without obstruction or gangrene; K21.9 Gastro-esophageal reflux disease without esophagitis; Z71.3 Dietary counseling and surveillance; G47.33 Obstructive sleep apnea (adult) (pediatric); I10 Essential (primary) hypertension; Z71.89 Other specified counseling; I44.0 Atrioventricular block, first degree; E03.9 Hypothyroidism, unspecified; G20 Parkinson's disease; E66.01 Morbid (severe) obesity due to excess calories; J45.909 Unspecified asthma, uncomplicated; Z01.810 Encounter for preprocedural cardiovascular examination; Z01.812 Encounter for preprocedural laboratory examination; Z20.822 Contact with and (suspected) exposure to COVID-19; Z79.02 Long term (current) use of antithrombotics/antiplatelets; Z79.899 Other long term (current) drug therapy; Z68.44 Body mass index [BMI] 60.0-69.9, adult; Z86.16 Personal history of COVID-19; Z86.2 Personal history of diseases of the blood and blood-forming organs and certain disorders involving the immune mechanism
CPT/HCPCS: 0223U; 36415; 43239; 43251; 85025; 93005; C9113; J2001; J2250; J2704; J3010

== ENCOUNTER → 2022-07-17 | Outpatient (CLI) | payer MEDICARE ==
[~2022-07-17] MED LIST changes: -FENTANYL CITRATE/PF 100MCG/2 ML INJ ONE; -LIDOCAINE HCL 2% LOCAL INJ 5 ML SDV VIAL INJ ONE; -MIDAZOLAM HCL 2 MG/2 ML VIAL ONE; -PROPOFOL IV EMULSION 10 MG/ML 20 ML VIAL ONE
== END ==
LOC: RAD 12:54
PROVIDERS: ATTEND Internal Medicine Critical Care Medicine
DX: R06.00 Dyspnea, unspecified (principal)
CPT/HCPCS: 71046

== ENCOUNTER 2022-12-20 08:39 | Inpatient (IN) | payer MEDICARE ==
[~2022-12-20] VITALS: Ht 160 cm; Wt 190.5 kg
[2022-12-20] MEDS ORDERED: ALBUTEROL/IPRATROPIUM 3 ML NEB ONE ×2 (08:50→08:52)
[2022-12-20] MEDS ORDERED: METHYLPREDNISOLONE SOD SUCC 125 MG/2ML VIAL ONE (08:50)
[2022-12-20] MEDS ORDERED: METHYLPREDNISOLONE SOD SUCC 125 MG/2ML VIAL IV STA (08:50)
[2022-12-20] MEDS ORDERED: ALBUTEROL SULF 0.083% NEB SOLN 3 ML NEB NEB ONE (09:00)
[2022-12-20] MEDS ORDERED: IPRATROPIUM BROMIDE 0.02% 2.5 ML NEB NEB ONE (09:00)
[2022-12-20 09:08] LABS: BASOPHILS # (AUTO) 0.1 (0.0-0.1); BASOPHILS % 0.5 % (0.0-1.0); EOSINOPHILS # (AUTO) 0.2 (0.0-0.4); HEMATOCRIT 43.3 % (34.2-44.1); HEMOGLOBIN 13.9 g/dL (12.0-16.0); LYMPHOCYTES % 30.7 % (18.0-39.1); MEAN CORPUSCULAR HGB CONC 32.1 g/dL (31-35); MEAN CORPUSCULAR VOLUME 90.4 fL (81-99); MONOCYTES # (AUTO) 0.7 (0.2-0.8); NEUTROPHILS # (AUTO) 5.7 (2.1-6.9); NEUTROPHILS % 58.8 % (38.7-80.0); PLATELET COUNT 279 x10e3/uL (140-360); RED BLOOD COUNT 4.79 x10e6/uL (3.6-5.1)
[2022-12-20 09:15] LABS: COLOR,URINE YELLOW (YELLOW); KETONES,URINE NEGATIVE (NEGATIVE); LEUKOCYTE ESTERASE ,URINE NEGATIVE (NEGATIVE); NITRITE,URINE NEGATIVE (NEGATIVE); PROTEIN,URINE DIPSTICK 1+ (NEGATIVE)
[2022-12-20 09:16] LABS: URINE UROBILINOGEN 0.2 mg/dL (0.2 - 1)
[2022-12-20 09:17] LABS: BACTERIA,URINE FEW /HPF; RBC,URINE 0-5 /HPF (0-5); WBC,URINE (MAN) 0-5 /HPF (0-5)
[2022-12-20 09:18] LABS: CLARITY,URINE CLEAR (CLEAR); EPITHELIAL CELLS,URINE FEW /LPF; INR 0.95; PROTHROMBIN TIME 13.2 seconds (11.9-14.5)
[2022-12-20 09:19] LABS: PARTIAL THROMBOPLASTIN TIME 28.9 seconds (23.8-35.5)
[2022-12-20 09:30] LABS: ALANINE AMINOTRANSFERASE 15 IU/L (0-55); ALBUMIN 3.3 g/dL (3.5-5.0); ALBUMIN/GLOBULIN RATIO 0.7 (0.8-2.0); ALKALINE PHOSPHATASE 118 IU/L (40-150); ANION GAP 18.9 mmol/L (8-16); BLOOD UREA NITROGEN 10 mg/dL (7-26); BUN/CREATININE RATIO 11 (6-25); CALCIUM 9.3 mg/dL (8.4-10.2); CARBON DIOXIDE 20 mmol/L (22-29); CHLORIDE 104 mmol/L (98-107); CREATINE KINASE 43 IU/L (29-168); CREATININE, SERUM 0.93 mg/dL (0.57-1.11); GLUCOSE 97 mg/dL (74-118); MAGNESIUM 1.9 MG/DL (1.3-2.1); POTASSIUM 3.9 mmol/L (3.5-5.1); SODIUM 139 mmol/L (136-145)
[2022-12-20] MEDS ORDERED: SODIUM CHLORIDE 0.9% 1000ML 1,000 ML IV ONE (09:30)
[2022-12-20 09:37] LABS: B-TYPE NATRIURETIC PEPTIDE2 < 10.0 pg/mL (0-100)
[2022-12-20] MEDS: FAMOTIDINE 20 MG/2 ML VIAL IV SCH ×2 (10:30→20:37)
[2022-12-20] MEDS ORDERED: ONDANSETRON HCL INJ 2MG/ML 2ML 2 MG/ML VIAL IV PRN (10:30)
[2022-12-20] MEDS: ALBUTEROL/IPRATROPIUM 3 ML NEB NEB SCH ×4 (10:59→22:12)
[2022-12-20] MEDS ORDERED: ZOLPIDEM TARTRATE 5 MG TAB PO PRN (11:00)
[2022-12-20] MEDS: SODIUM CHLORIDE 0.9% 1000ML 1,000 ML IV SCH ×2 (11:31→20:36)
[2022-12-20 13:00] LABS: CREATINE KINASE 38 IU/L (29-168)
[2022-12-20] MEDS ORDERED: ACETAMINOPHEN 325 MG TAB PO ONE (13:00)
[2022-12-20] MEDS ORDERED: METHYLPREDNISOLONE SOD SUCC 125 MG/2ML VIAL IV SCH (14:00)
[2022-12-20 18:10] VITALS: BP 117/90
[2022-12-20] MEDS ORDERED: PAMELOR25 MG PO (18:17)
[2022-12-20 18:19] VITALS: BP 117/90
[2022-12-20] MEDS: BUDESONIDE/FORMOTEROL 160/4.5MCG INHALER INH SCH (19:00)
[2022-12-20 20:00] VITALS: BP 106/74
[2022-12-20] MEDS: METHYLPREDNISOLONE SOD SUCC 40 MG/ML VIAL 1ML IV SCH (20:37)
[2022-12-20 21:19] VITALS: BP 106/74
[2022-12-20 21:34] LABS: CREATINE KINASE 110 IU/L (29-168)
[2022-12-21] VITALS (8 sets, daily range): BP systolic 113–126; BP diastolic 70–88
[2022-12-21] MEDS: ALBUTEROL/IPRATROPIUM 3 ML NEB NEB SCH ×6 (03:08→23:15)
[2022-12-21 05:33] LABS: BASOPHILS % 0.1 % (0.0-1.0); HEMOGLOBIN 12.6 g/dL (12.0-16.0); LYMPHOCYTES # (AUTO) 0.9 (1.0-3.2); LYMPHOCYTES % 8.7 % (18.0-39.1); MEAN CORPUSCULAR HGB CONC 33.2 g/dL (31-35); MEAN CORPUSCULAR VOLUME 87.4 fL (81-99); MONOCYTES # (AUTO) 0.2 (0.2-0.8); MONOCYTES % 1.9 % (4.4-11.3); NEUTROPHILS # (AUTO) 9.4 (2.1-6.9); NEUTROPHILS % 88.2 % (38.7-80.0); PLATELET COUNT 285 x10e3/uL (140-360); RED BLOOD COUNT 4.35 x10e6/uL (3.6-5.1); RED CELL DISTRIBUTION WIDTH 14.6 % (11.7-14.4)
[2022-12-21] MEDS: LEVOTHYROXINE SODIUM 75 MCG TAB PO SCH (05:44)
[2022-12-21 06:25] LABS: ALBUMIN/GLOBULIN RATIO 0.7 (0.8-2.0); CHOL/HDL RATIO 3.5 (3.0-3.6); CREATININE, SERUM 0.88 mg/dL (0.57-1.11)
[2022-12-21 06:55] LABS: CREATINE KINASE 227 IU/L (29-168)
[2022-12-21] MEDS: BUDESONIDE/FORMOTEROL 160/4.5MCG INHALER INH SCH ×2 (07:00→19:35)
[2022-12-21] MEDS: CLOPIDOGREL BISULFATE 75 MG TAB PO SCH (09:00)
[2022-12-21] MEDS: ALPRAZOLAM 1 MG TAB PO PRN (09:00)
[2022-12-21] MEDS ORDERED: ACETAMINOPHEN 325 MG TAB PO PRN (09:00)
[2022-12-21] MEDS: METHYLPREDNISOLONE SOD SUCC 40 MG/ML VIAL 1ML IV SCH ×2 (09:00→21:56)
[2022-12-21] MEDS: OMEPRAZOLE 20 MG CAP PO SCH (09:00)
[2022-12-21] MEDS: FAMOTIDINE 20 MG/2 ML VIAL IV SCH ×2 (10:30→21:56)
[2022-12-21] MEDS ORDERED: ONDANSETRON HCL 4 MG ORAL DISINTEGRATING TAB PO PRN (13:45)
[2022-12-21] MEDS: NYSTATIN 15 GM POWDER UD BTL TOP SCH (17:42)
[2022-12-21] MEDS: NORTRIPTYLINE HCL 25 MG CAP PO SCH (21:56)
[2022-12-22] VITALS (7 sets, daily range): BP systolic 115–142; BP diastolic 80–92
[2022-12-22] MEDS: ALBUTEROL/IPRATROPIUM 3 ML NEB NEB SCH ×6 (02:50→23:20)
[2022-12-22] MEDS: LEVOTHYROXINE SODIUM 75 MCG TAB PO SCH (06:16)
[2022-12-22] MEDS: METHYLPREDNISOLONE SOD SUCC 40 MG/ML VIAL 1ML IV SCH ×2 (08:47→21:11)
[2022-12-22] MEDS: AZITHROMYCIN 250 MG TAB PO SCH (08:47)
[2022-12-22] MEDS: OMEPRAZOLE 20 MG CAP PO SCH (08:47)
[2022-12-22] MEDS: FAMOTIDINE 20 MG/2 ML VIAL IV SCH ×2 (08:48→21:11)
[2022-12-22] MEDS: CLOPIDOGREL BISULFATE 75 MG TAB PO SCH (08:48)
[2022-12-22] MEDS ORDERED: NITROGLYCERIN 0.4 MG SUBL SL PRN (09:30)
[2022-12-22] MEDS ORDERED: NITROGLYCERIN 0.4 MG SUBL ONE (09:42)
[2022-12-22] MEDS: NYSTATIN 15 GM POWDER UD BTL TOP SCH (10:08)
[2022-12-22] MEDS: BUDESONIDE/FORMOTEROL 160/4.5MCG INHALER INH SCH ×2 (10:15→19:40)
[2022-12-22] MEDS: NORTRIPTYLINE HCL 25 MG CAP PO SCH (21:11)
[2022-12-22] MEDS: ALPRAZOLAM 1 MG TAB PO PRN (23:00)
[2022-12-23] MEDS: ALBUTEROL/IPRATROPIUM 3 ML NEB NEB SCH ×6 (03:00→23:10)
[2022-12-23 04:35] VITALS: BP 119/72
[2022-12-23] MEDS: LEVOTHYROXINE SODIUM 75 MCG TAB PO SCH (06:12)
[2022-12-23] MEDS: BUDESONIDE/FORMOTEROL 160/4.5MCG INHALER INH SCH ×2 (07:36→18:50)
[2022-12-23 08:04] VITALS: BP 119/83
[2022-12-23] MEDS: METHYLPREDNISOLONE SOD SUCC 40 MG/ML VIAL 1ML IV SCH ×2 (09:20→21:07)
[2022-12-23] MEDS: CLOPIDOGREL BISULFATE 75 MG TAB PO SCH (09:21)
[2022-12-23] MEDS: OMEPRAZOLE 20 MG CAP PO SCH (09:21)
[2022-12-23] MEDS: AZITHROMYCIN 250 MG TAB PO SCH (09:21)
[2022-12-23 09:30] VITALS: BP 119/83
[2022-12-23] MEDS: FAMOTIDINE 20 MG/2 ML VIAL IV SCH ×2 (10:30→21:09)
[2022-12-23] MEDS ORDERED: SODIUM CHLORIDE 0.9% 250ML 250 ML ONE (10:58)
[2022-12-23 12:10] VITALS: BP 129/94
[2022-12-23 16:49] VITALS: BP 137/98
[2022-12-23 20:00] VITALS: BP 111/68
[2022-12-23] MEDS: NYSTATIN 15 GM POWDER UD BTL TOP SCH (21:08)
[2022-12-23] MEDS: NORTRIPTYLINE HCL 25 MG CAP PO SCH (21:08)
[2022-12-23] MEDS: ALPRAZOLAM 1 MG TAB PO PRN (21:21)
[2022-12-24] VITALS (7 sets, daily range): BP systolic 111–133; BP diastolic 78–88
[2022-12-24] MEDS: ALBUTEROL/IPRATROPIUM 3 ML NEB NEB SCH ×6 (03:15→23:05)
[2022-12-24] MEDS: LEVOTHYROXINE SODIUM 75 MCG TAB PO SCH (06:14)
[2022-12-24] MEDS: BUDESONIDE/FORMOTEROL 160/4.5MCG INHALER INH SCH ×2 (07:15→19:42)
[2022-12-24] MEDS: METHYLPREDNISOLONE SOD SUCC 40 MG/ML VIAL 1ML IV SCH (10:05)
[2022-12-24] MEDS: OMEPRAZOLE 20 MG CAP PO SCH (10:10)
[2022-12-24] MEDS: CLOPIDOGREL BISULFATE 75 MG TAB PO SCH (10:10)
[2022-12-24] MEDS: AZITHROMYCIN 250 MG TAB PO SCH (10:10)
[2022-12-24] MEDS: FAMOTIDINE 20 MG/2 ML VIAL IV SCH ×2 (10:30→20:35)
[2022-12-24] MEDS: NYSTATIN 15 GM POWDER UD BTL TOP SCH (20:34)
[2022-12-24] MEDS: NORTRIPTYLINE HCL 25 MG CAP PO SCH (20:34)
[2022-12-25] VITALS: BP 123/85
[2022-12-25] MEDS: ALBUTEROL/IPRATROPIUM 3 ML NEB NEB SCH ×3 (03:00→11:00)
[2022-12-25 04:00] VITALS: BP 116/72
[2022-12-25] MEDS: LEVOTHYROXINE SODIUM 75 MCG TAB PO SCH (05:39)
[2022-12-25] MEDS: BUDESONIDE/FORMOTEROL 160/4.5MCG INHALER INH SCH (07:04)
[2022-12-25 08:34] VITALS: BP 118/78
[2022-12-25 08:41] VITALS: BP 118/78
[2022-12-25] MEDS: METHYLPREDNISOLONE SOD SUCC 40 MG/ML VIAL 1ML IV SCH (09:07)
[2022-12-25] MEDS: OMEPRAZOLE 20 MG CAP PO SCH (09:08)
[2022-12-25] MEDS: AZITHROMYCIN 250 MG TAB PO SCH (09:08)
[2022-12-25] MEDS: CLOPIDOGREL BISULFATE 75 MG TAB PO SCH (09:08)
[2022-12-25] MEDS: FAMOTIDINE 20 MG/2 ML VIAL IV SCH (10:30)
== END 2022-12-25 12:05 | disposition home or self-care (01) | DRG 191 ==
LOC: ER 08:50 → ERHOLD 10:18 → MED/SURG 17:40
PROVIDERS: ADMIT Internal Medicine; ATTEND Internal Medicine
DX: J44.1 Chronic obstructive pulmonary disease with (acute) exacerbation (principal); Z68.45 Body mass index [BMI] 70 or greater, adult; I10 Essential (primary) hypertension; I25.10 Atherosclerotic heart disease of native coronary artery without angina pectoris; D64.9 Anemia, unspecified; F41.9 Anxiety disorder, unspecified; F32.A Depression, unspecified; E78.5 Hyperlipidemia, unspecified; M19.90 Unspecified osteoarthritis, unspecified site; G20 Parkinson's disease; R00.0 Tachycardia, unspecified; E66.01 Morbid (severe) obesity due to excess calories; J06.9 Acute upper respiratory infection, unspecified; R60.9 Edema, unspecified; Z90.49 Acquired absence of other specified parts of digestive tract; Z79.51 Long term (current) use of inhaled steroids; Z20.822 Contact with and (suspected) exposure to COVID-19
CPT/HCPCS: 36415; 51700; 71045; 80053; 80061; 81001; 82550; 82553; 83605; 83735; 83880; 84484; 85025; 85610; 85730; 87040; 87086; 93005; 93306; 93970; 94760; 94799; 99252; 99285; J0696; J2920; J2930; J7030; J7050

== ENCOUNTER 2023-03-09 15:54 | Inpatient (IN) | payer MEDICARE ==
[~2023-03-09] VITALS: Ht 160 cm; Wt 190.6 kg
[2023-03-09] VITALS (9 sets, daily range): BP systolic 117–141; BP diastolic 45–91; PULSE 86–99; RESP 17–24; TEMP 97.7–97.9; O2SAT 94–100
[2023-03-09] MEDS ORDERED: ALBUTEROL SULF 0.083% NEB SOLN 3 ML NEB ONE (16:10)
[2023-03-09] MEDS ORDERED: ALBUTEROL/IPRATROPIUM 3 ML NEB NEB ONE ×2 (16:15)
[2023-03-09] MEDS ORDERED: DEXAMETHASONE SOD PHOS 10 MG/1 ML VIAL IV ONE (16:15)
[2023-03-09] MEDS ORDERED: SODIUM CHLORIDE 0.9% 500ML 500 ML IV ONE ×2 (16:30→17:00)
[2023-03-09] MEDS ORDERED: LACTATED RINGER'S 1,000 ML IV ONE (16:30)
[2023-03-09 16:34] LABS: BASOPHILS % 0.2 % (0.0-1.0); EOSINOPHILS % 0.1 % (0.0-6.0); HEMATOCRIT 43.4 % (34.2-44.1); HEMOGLOBIN 14.6 g/dL (12.0-16.0); LYMPHOCYTES # (AUTO) 1.7 (1.0-3.2); LYMPHOCYTES % 10.4 % (18.0-39.1); MEAN CORPUSCULAR HEMOGLOBIN 29.9 pg (28-32); MEAN CORPUSCULAR HGB CONC 33.6 g/dL (31-35); MEAN CORPUSCULAR VOLUME 88.9 fL (81-99); MONOCYTES # (AUTO) 0.6 (0.2-0.8); MONOCYTES % 3.9 % (4.4-11.3); NEUTROPHILS # (AUTO) 13.5 (2.1-6.9); NEUTROPHILS % 81.9 % (38.7-80.0); PLATELET COUNT 399 x10e3/uL (140-360); RED BLOOD COUNT 4.88 x10e6/uL (3.6-5.1); RED CELL DISTRIBUTION WIDTH 14.8 % (11.7-14.4)
[2023-03-09 16:42] LABS: ABG HCO3 20 mmol/L (22-26); ABG PCO2 23 mmHg (35-45); ABG PH 7.55 (7.35-7.45); ABG PO2 194 mmHg (80-105); ABG TCO2 21
[2023-03-09 16:45] LABS: INR 0.95; PROTHROMBIN TIME 13.1 seconds (11.9-14.5)
[2023-03-09 16:48] LABS: PARTIAL THROMBOPLASTIN TIME 22.7 seconds (23.8-35.5)
[2023-03-09 16:49] LABS: ALBUMIN 3.6 g/dL (3.5-5.0); ALBUMIN/GLOBULIN RATIO 0.8 (0.8-2.0); CALCIUM 9.7 mg/dL (8.4-10.2)
[2023-03-09] MEDS: Doxycycline IV 100 MG in SODIUM CHLORIDE 0.9% 100 ML IV SCH (16:52)
[2023-03-09] MEDS ORDERED: SODIUM CHLORIDE 0.9% 1000ML 1,000 ML IV STA (16:57)
[2023-03-09] MEDS ORDERED: ZOLPIDEM TARTRATE 5 MG TAB PO PRN (17:45)
[2023-03-09] MEDS ORDERED: MAGNESIUM/ALUMINUM/SIMETHICONE 30 ML UDC PO ONE (18:15)
[2023-03-09 18:54] LABS: CLARITY,URINE SL CLOUDY (CLEAR); COLOR,URINE YELLOW (YELLOW); KETONES,URINE NEGATIVE (NEGATIVE); LEUKOCYTE ESTERASE ,URINE NEGATIVE (NEGATIVE); NITRITE,URINE NEGATIVE (NEGATIVE); PROTEIN,URINE DIPSTICK NEGATIVE (NEGATIVE); URINE UROBILINOGEN 0.2 mg/dL (0.2 - 1)
[2023-03-09] MEDS ORDERED: ALBUTEROL/IPRATROPIUM 3 ML NEB NEB SCH (19:00)
[2023-03-09 19:09] LABS: BACTERIA,URINE FEW /HPF; EPITHELIAL CELLS,URINE FEW /LPF
[2023-03-09] MEDS: ALBUTEROL/IPRATROPIUM 3 ML NEB NEB SCH ×2 (19:35→23:15)
[2023-03-09] MEDS: BUDESONIDE/FORMOTEROL 160/4.5MCG INHALER INH SCH (20:48)
[2023-03-09] MEDS ORDERED: ROPINIROLE HCL1 MG PO (21:20)
[2023-03-09] MEDS ORDERED: AMLODIPINE BESYL5 MG PO (21:20)
[2023-03-10] VITALS (30 sets, daily range): BP systolic 104–154; BP diastolic 62–92; PULSE 78–109; RESP 16–28; TEMP 97.8–98.8; O2SAT 98–100
[2023-03-10] MEDS: ALBUTEROL/IPRATROPIUM 3 ML NEB NEB SCH ×6 (03:20→22:50)
[2023-03-10] MEDS: Doxycycline IV 100 MG in SODIUM CHLORIDE 0.9% 100 ML IV SCH ×2 (05:22→17:34)
[2023-03-10] MEDS: ALPRAZOLAM 0.5 MG TAB PO PRN (05:23)
[2023-03-10] MEDS: METHYLPREDNISOLONE SOD SUCC 40 MG/ML VIAL 1ML IV SCH ×3 (05:23→22:29)
[2023-03-10] MEDS: LEVOTHYROXINE SODIUM 75 MCG TAB PO SCH (05:23)
[2023-03-10] MEDS: ACETAMINOPHEN 325 MG TAB PO PRN ×2 (05:23→20:43)
[2023-03-10 06:47] LABS: BASOPHILS % 0.3 % (0.0-1.0); EOSINOPHILS % 0.1 % (0.0-6.0); HEMATOCRIT 37.5 % (34.2-44.1); HEMOGLOBIN 12.3 g/dL (12.0-16.0); LYMPHOCYTES % 9.5 % (18.0-39.1); MEAN CORPUSCULAR HEMOGLOBIN 29.6 pg (28-32); MEAN CORPUSCULAR HGB CONC 32.8 g/dL (31-35); MEAN CORPUSCULAR VOLUME 90.4 fL (81-99); MONOCYTES # (AUTO) 0.7 (0.2-0.8); MONOCYTES % 6.4 % (4.4-11.3); NEUTROPHILS # (AUTO) 8.4 (2.1-6.9); NEUTROPHILS % 79.5 % (38.7-80.0); PLATELET COUNT 296 x10e3/uL (140-360); RED BLOOD COUNT 4.15 x10e6/uL (3.6-5.1); RED CELL DISTRIBUTION WIDTH 14.5 % (11.7-14.4)
[2023-03-10 07:08] LABS: ALBUMIN 2.9 g/dL (3.5-5.0); ALBUMIN/GLOBULIN RATIO 0.8 (0.8-2.0); ANION GAP 15.7 mmol/L (8-16); CALCIUM 8.6 mg/dL (8.4-10.2); CREATININE, SERUM 0.82 mg/dL (0.57-1.11); POTASSIUM 3.7 mmol/L (3.5-5.1)
[2023-03-10] MEDS: BUDESONIDE/FORMOTEROL 160/4.5MCG INHALER INH SCH ×2 (07:11→19:30)
[2023-03-10] MEDS: OMEPRAZOLE 20 MG CAP PO SCH (07:30)
[2023-03-10] MEDS: CLOPIDOGREL BISULFATE 75 MG TAB PO SCH (09:01)
[2023-03-10] MEDS: AMLODIPINE BESYLATE 5 MG TAB PO SCH (09:01)
[2023-03-10] MEDS: ROPINIROLE HCL 1 MG TAB PO SCH (09:01)
[2023-03-10] MEDS: NYSTATIN 15 GM POWDER UD BTL TOP SCH (17:34)
[2023-03-10] MEDS: NORTRIPTYLINE HCL 25 MG CAP PO SCH (20:43)
[2023-03-11] VITALS (15 sets, daily range): BP systolic 111–143; BP diastolic 77–91; PULSE 92–115; RESP 13–22; TEMP 97.6–98.3; O2SAT 97–100
[2023-03-11] MEDS: ALBUTEROL/IPRATROPIUM 3 ML NEB NEB SCH ×2 (02:45→07:07)
[2023-03-11] MEDS: METHYLPREDNISOLONE SOD SUCC 40 MG/ML VIAL 1ML IV SCH ×3 (05:02→21:20)
[2023-03-11] MEDS: Doxycycline IV 100 MG in SODIUM CHLORIDE 0.9% 100 ML IV SCH ×2 (05:02→18:12)
[2023-03-11] MEDS: LEVOTHYROXINE SODIUM 75 MCG TAB PO SCH (05:02)
[2023-03-11] MEDS: BUDESONIDE/FORMOTEROL 160/4.5MCG INHALER INH SCH ×2 (07:07→19:40)
[2023-03-11] MEDS: OMEPRAZOLE 20 MG CAP PO SCH (08:02)
[2023-03-11] MEDS: ROPINIROLE HCL 1 MG TAB PO SCH (08:02)
[2023-03-11] MEDS: AMLODIPINE BESYLATE 5 MG TAB PO SCH (08:02)
[2023-03-11] MEDS: CLOPIDOGREL BISULFATE 75 MG TAB PO SCH (08:03)
[2023-03-11] MEDS: NYSTATIN 15 GM POWDER UD BTL TOP SCH ×2 (08:03→15:57)
[2023-03-11] MEDS: IPRATROPIUM BROMIDE 0.02% 2.5 ML NEB NEB SCH ×4 (11:15→23:25)
[2023-03-11] MEDS: ALBUTEROL SULF 0.083% NEB SOLN 3 ML NEB NEB SCH ×4 (11:15→23:25)
[2023-03-11] MEDS ORDERED: SODIUM CHLORIDE 0.9% 250ML 250 ML ONE (17:29)
[2023-03-11] MEDS: NORTRIPTYLINE HCL 25 MG CAP PO SCH (21:20)
[2023-03-12] VITALS (11 sets, daily range): BP systolic 111–156; BP diastolic 71–92; PULSE 92–107; RESP 16–20; TEMP 98.2–98.8; O2SAT 93–100
[2023-03-12] MEDS: IPRATROPIUM BROMIDE 0.02% 2.5 ML NEB NEB SCH ×6 (03:05→22:40)
[2023-03-12] MEDS: ALBUTEROL SULF 0.083% NEB SOLN 3 ML NEB NEB SCH ×6 (03:05→22:40)
[2023-03-12] MEDS ORDERED: Doxycycline IV 100 MG in SODIUM CHLORIDE 0.9% 100 ML IV ONE (04:30)
[2023-03-12] MEDS: LEVOTHYROXINE SODIUM 75 MCG TAB PO SCH (06:40)
[2023-03-12] MEDS: METHYLPREDNISOLONE SOD SUCC 40 MG/ML VIAL 1ML IV SCH ×3 (06:41→22:45)
[2023-03-12] MEDS: BUDESONIDE/FORMOTEROL 160/4.5MCG INHALER INH SCH ×2 (07:07→19:45)
[2023-03-12] MEDS: ROPINIROLE HCL 1 MG TAB PO SCH (08:38)
[2023-03-12] MEDS: OMEPRAZOLE 20 MG CAP PO SCH (08:39)
[2023-03-12] MEDS: AMLODIPINE BESYLATE 5 MG TAB PO SCH (08:39)
[2023-03-12] MEDS: CLOPIDOGREL BISULFATE 75 MG TAB PO SCH (08:39)
[2023-03-12] MEDS: NYSTATIN 15 GM POWDER UD BTL TOP SCH ×2 (08:40→16:08)
[2023-03-12] MEDS: DOXYCYCLINE HYCLATE TABLET 100 MG TAB PO SCH (16:08)
[2023-03-12] MEDS: NORTRIPTYLINE HCL 25 MG CAP PO SCH (20:42)
[2023-03-13] VITALS (15 sets, daily range): BP systolic 130–156; BP diastolic 88–93; PULSE 92–110; RESP 15–22; TEMP 97.7–98.9; O2SAT 92–100
[2023-03-13] MEDS: ALBUTEROL SULF 0.083% NEB SOLN 3 ML NEB NEB SCH ×6 (02:52→22:31)
[2023-03-13] MEDS: IPRATROPIUM BROMIDE 0.02% 2.5 ML NEB NEB SCH ×6 (02:52→22:30)
[2023-03-13] MEDS: LEVOTHYROXINE SODIUM 75 MCG TAB PO SCH (06:01)
[2023-03-13] MEDS: DOXYCYCLINE HYCLATE TABLET 100 MG TAB PO SCH ×2 (06:01→16:17)
[2023-03-13] MEDS: METHYLPREDNISOLONE SOD SUCC 40 MG/ML VIAL 1ML IV SCH ×3 (06:01→21:00)
[2023-03-13] MEDS: BUDESONIDE/FORMOTEROL 160/4.5MCG INHALER INH SCH ×2 (06:47→19:40)
[2023-03-13] MEDS: ROPINIROLE HCL 1 MG TAB PO SCH (08:36)
[2023-03-13] MEDS: AMLODIPINE BESYLATE 5 MG TAB PO SCH (08:37)
[2023-03-13] MEDS: NYSTATIN 15 GM POWDER UD BTL TOP SCH ×2 (08:37→16:17)
[2023-03-13] MEDS: CLOPIDOGREL BISULFATE 75 MG TAB PO SCH (08:37)
[2023-03-13] MEDS: OMEPRAZOLE 20 MG CAP PO SCH (08:37)
[2023-03-13] MEDS: NORTRIPTYLINE HCL 25 MG CAP PO SCH (21:00)
[2023-03-14] VITALS (14 sets, daily range): BP systolic 126–161; BP diastolic 83–102; PULSE 89–107; RESP 16–20; TEMP 97.5–98.6; O2SAT 94–100
[2023-03-14] MEDS: IPRATROPIUM BROMIDE 0.02% 2.5 ML NEB NEB SCH ×6 (02:00→23:20)
[2023-03-14] MEDS: ALBUTEROL SULF 0.083% NEB SOLN 3 ML NEB NEB SCH ×6 (02:01→23:20)
[2023-03-14] MEDS: LEVOTHYROXINE SODIUM 75 MCG TAB PO SCH (05:01)
[2023-03-14] MEDS: DOXYCYCLINE HYCLATE TABLET 100 MG TAB PO SCH ×2 (05:01→16:36)
[2023-03-14] MEDS: METHYLPREDNISOLONE SOD SUCC 40 MG/ML VIAL 1ML IV SCH ×2 (05:01→16:36)
[2023-03-14] MEDS: BUDESONIDE/FORMOTEROL 160/4.5MCG INHALER INH SCH ×2 (06:27→19:42)
[2023-03-14] MEDS: ROPINIROLE HCL 1 MG TAB PO SCH (08:30)
[2023-03-14] MEDS: CLOPIDOGREL BISULFATE 75 MG TAB PO SCH (08:30)
[2023-03-14] MEDS: OMEPRAZOLE 20 MG CAP PO SCH (08:30)
[2023-03-14] MEDS: AMLODIPINE BESYLATE 5 MG TAB PO SCH (08:31)
[2023-03-14] MEDS: NYSTATIN 15 GM POWDER UD BTL TOP SCH ×2 (08:31→16:35)
[2023-03-14] MEDS: NORTRIPTYLINE HCL 25 MG CAP PO SCH (20:40)
[2023-03-15] VITALS (12 sets, daily range): BP systolic 133–158; BP diastolic 88–98; PULSE 92–108; RESP 18–20; TEMP 97.5–98.4; O2SAT 94–100
[2023-03-15] MEDS: ACETAMINOPHEN 325 MG TAB PO PRN (01:57)
[2023-03-15] MEDS: IPRATROPIUM BROMIDE 0.02% 2.5 ML NEB NEB SCH ×6 (03:30→23:30)
[2023-03-15] MEDS: ALBUTEROL SULF 0.083% NEB SOLN 3 ML NEB NEB SCH ×6 (03:30→23:30)
[2023-03-15] MEDS: LEVOTHYROXINE SODIUM 75 MCG TAB PO SCH (05:18)
[2023-03-15] MEDS: DOXYCYCLINE HYCLATE TABLET 100 MG TAB PO SCH ×2 (05:18→17:22)
[2023-03-15 05:49] LABS: BASOPHILS # (AUTO) 0.1 (0.0-0.1); BASOPHILS % 0.6 % (0.0-1.0); HEMATOCRIT 37.9 % (34.2-44.1); HEMOGLOBIN 12.5 g/dL (12.0-16.0); LYMPHOCYTES # (AUTO) 1.9 (1.0-3.2); LYMPHOCYTES % 11.4 % (18.0-39.1); MEAN CORPUSCULAR VOLUME 90.9 fL (81-99); MONOCYTES # (AUTO) 1.1 (0.2-0.8); MONOCYTES % 6.6 % (4.4-11.3); NEUTROPHILS # (AUTO) 12.4 (2.1-6.9); NEUTROPHILS % 74.9 % (38.7-80.0); PLATELET COUNT 226 x10e3/uL (140-360); RED BLOOD COUNT 4.17 x10e6/uL (3.6-5.1); RED CELL DISTRIBUTION WIDTH 14.8 % (11.7-14.4)
[2023-03-15 06:11] LABS: ALBUMIN 2.9 g/dL (3.5-5.0); ALBUMIN/GLOBULIN RATIO 0.8 (0.8-2.0); ANION GAP 15.2 mmol/L (8-16); CALCIUM 8.8 mg/dL (8.4-10.2); CREATININE, SERUM 0.79 mg/dL (0.57-1.11); POTASSIUM 4.2 mmol/L (3.5-5.1)
[2023-03-15] MEDS: BUDESONIDE/FORMOTEROL 160/4.5MCG INHALER INH SCH ×2 (07:10→21:17)
[2023-03-15] MEDS: ROPINIROLE HCL 1 MG TAB PO SCH (08:21)
[2023-03-15] MEDS: CLOPIDOGREL BISULFATE 75 MG TAB PO SCH (08:21)
[2023-03-15] MEDS: OMEPRAZOLE 20 MG CAP PO SCH (08:21)
[2023-03-15] MEDS: AMLODIPINE BESYLATE 5 MG TAB PO SCH (08:21)
[2023-03-15] MEDS: METHYLPREDNISOLONE SOD SUCC 40 MG/ML VIAL 1ML IV SCH ×2 (08:22→17:22)
[2023-03-15] MEDS: NYSTATIN 15 GM POWDER UD BTL TOP SCH ×2 (08:22→17:22)
[2023-03-15 15:43] LABS: ANION GAP 15.2 mmol/L (8-16); CALCIUM 9.2 mg/dL (8.4-10.2); CREATININE, SERUM 0.8 mg/dL (0.57-1.11); POTASSIUM 4.2 mmol/L (3.5-5.1)
[2023-03-15] MEDS: NORTRIPTYLINE HCL 25 MG CAP PO SCH (21:16)
[2023-03-16] VITALS (13 sets, daily range): BP systolic 115–153; BP diastolic 75–93; PULSE 78–98; RESP 18–20; TEMP 97.4–98.4; O2SAT 93–100
[2023-03-16] MEDS: IPRATROPIUM BROMIDE 0.02% 2.5 ML NEB NEB SCH ×6 (03:30→22:50)
[2023-03-16] MEDS: ALBUTEROL SULF 0.083% NEB SOLN 3 ML NEB NEB SCH ×6 (03:30→22:50)
[2023-03-16] MEDS: LEVOTHYROXINE SODIUM 75 MCG TAB PO SCH (05:34)
[2023-03-16] MEDS: DOXYCYCLINE HYCLATE TABLET 100 MG TAB PO SCH ×2 (05:34→17:37)
[2023-03-16] MEDS: ALPRAZOLAM 0.5 MG TAB PO PRN (06:41)
[2023-03-16] MEDS: BUDESONIDE/FORMOTEROL 160/4.5MCG INHALER INH SCH ×2 (07:25→19:20)
[2023-03-16] MEDS: ROPINIROLE HCL 1 MG TAB PO SCH (08:13)
[2023-03-16] MEDS: METHYLPREDNISOLONE SOD SUCC 40 MG/ML VIAL 1ML IV SCH ×2 (08:13→17:37)
[2023-03-16] MEDS: AMLODIPINE BESYLATE 5 MG TAB PO SCH (08:13)
[2023-03-16] MEDS: OMEPRAZOLE 20 MG CAP PO SCH (08:13)
[2023-03-16] MEDS: CLOPIDOGREL BISULFATE 75 MG TAB PO SCH (08:13)
[2023-03-16] MEDS: NYSTATIN 15 GM POWDER UD BTL TOP SCH ×2 (08:14→17:39)
[2023-03-16] MEDS: NORTRIPTYLINE HCL 25 MG CAP PO SCH (22:46)
[2023-03-17] VITALS: BP 115/98; PULSE 100; RESP 20; TEMP 97.6; O2SAT 98
[2023-03-17 03:10] VITALS: PULSE 98; RESP 18; O2SAT 93
[2023-03-17] MEDS: ALBUTEROL SULF 0.083% NEB SOLN 3 ML NEB NEB SCH ×2 (03:10→06:10)
[2023-03-17] MEDS: IPRATROPIUM BROMIDE 0.02% 2.5 ML NEB NEB SCH ×2 (03:10→06:10)
[2023-03-17 04:00] VITALS: BP 116/76; PULSE 96; RESP 20; TEMP 98; O2SAT 96
[2023-03-17 06:29] VITALS: PULSE 102; RESP 21; O2SAT 94
[2023-03-17] MEDS: BUDESONIDE/FORMOTEROL 160/4.5MCG INHALER INH SCH (06:29)
[2023-03-17] MEDS: LEVOTHYROXINE SODIUM 75 MCG TAB PO SCH (06:50)
[2023-03-17 08:04] VITALS: BP 119/77; PULSE 98; RESP 19; TEMP 97.4; O2SAT 99
[2023-03-17 08:50] VITALS: BP 119/77; PULSE 98; RESP 19; TEMP 97.4; O2SAT 99
[2023-03-17] MEDS: ROPINIROLE HCL 1 MG TAB PO SCH (08:53)
[2023-03-17] MEDS: OMEPRAZOLE 20 MG CAP PO SCH (08:53)
[2023-03-17] MEDS: NYSTATIN 15 GM POWDER UD BTL TOP SCH (08:53)
[2023-03-17] MEDS: CLOPIDOGREL BISULFATE 75 MG TAB PO SCH (08:53)
[2023-03-17] MEDS: AMLODIPINE BESYLATE 5 MG TAB PO SCH (08:53)
[2023-03-17] MEDS ORDERED: DOXYCYCLINE HYCLATE TABLET 100 MG TAB PO SCH (09:00)
[2023-03-17] MEDS ORDERED: DOXYCYCLINE HY100 MG PO (09:18)
[2023-03-17] MEDS ORDERED: PREDNISONE10 MG PO (09:19)
== END 2023-03-17 10:21 | disposition home or self-care (01) | DRG 871 ==
LOC: ER 16:10 → ERHOLD 17:29 → ICU 20:50 → MED/SURG2 03-11 16:23
PROVIDERS: ADMIT Internal Medicine; ATTEND Internal Medicine
PROC: 3E03329 Introduction of Other Anti-infective into Peripheral Vein, Percutaneous Approach (ICD-10-PCS; 2023-03-09)
PROC: 02HV33Z Insertion of Infusion Device into Superior Vena Cava, Percutaneous Approach (ICD-10-PCS; principal; 2023-03-10)
PROC: B548ZZA Ultrasonography of Superior Vena Cava, Guidance (ICD-10-PCS; 2023-03-10)
DX: A41.9 Sepsis, unspecified organism (principal); J18.9 Pneumonia, unspecified organism; J96.21 Acute and chronic respiratory failure with hypoxia; J45.901 Unspecified asthma with (acute) exacerbation; J44.0 Chronic obstructive pulmonary disease with (acute) lower respiratory infection; E66.2 Morbid (severe) obesity with alveolar hypoventilation; Z68.45 Body mass index [BMI] 70 or greater, adult; J44.1 Chronic obstructive pulmonary disease with (acute) exacerbation; I25.10 Atherosclerotic heart disease of native coronary artery without angina pectoris; D64.9 Anemia, unspecified; F41.9 Anxiety disorder, unspecified; F32.A Depression, unspecified; E78.5 Hyperlipidemia, unspecified; M19.90 Unspecified osteoarthritis, unspecified site; G25.81 Restless legs syndrome; K21.00 Gastro-esophageal reflux disease with esophagitis, without bleeding; I10 Essential (primary) hypertension; E03.9 Hypothyroidism, unspecified; D72.829 Elevated white blood cell count, unspecified; Z90.49 Acquired absence of other specified parts of digestive tract; Z79.02 Long term (current) use of antithrombotics/antiplatelets; Z79.890 Hormone replacement therapy; Z79.899 Other long term (current) drug therapy; Z94.7 Corneal transplant status; Z99.81 Dependence on supplemental oxygen; Z20.822 Contact with and (suspected) exposure to COVID-19
CPT/HCPCS: 36415; 36569; 36600; 51700; 71045; 80048; 80053; 81001; 82550; 82805; 83605; 83735; 83880; 84484; 85025; 85610; 85730; 87040; 87086; 93005; 93306; 93970; 94640; 94664; 94760; 94799; 99252; 99285; J0696; J1100; J2920; J7040; J7050